=== PATIENT | female | born 1970 | race Caucasian/White ===

== ENCOUNTER → 2016-11-24 | Outpatient (CLI) | payer MEDICAID ==
[2016-11-24 08:37] LABS: CHCM 30.9; HDW 2.44; HGB 11.7 gm/dL (11.4-16.0); Hypochromasia Slight; MCH 26.7 pg (25.0-35.0); MCHC 31.6 g/dL (31.0-37.0); MCV 84.4 fL (80.0-100.0); Mean Platelet Volume 6.6; RBC 4.38 m/uL (3.80-5.40); RDW 14.3 % (11.5-15.5); WBC 5.4 k/uL (3.8-10.6)
[2016-11-24 09:03] LABS: ALT 23 U/L (9-52); AST 16 U/L (14-36); Alkaline Phosphatase 70 U/L (38-126); Anion Gap 11 mmol/L; Blood Urea Nitrogen 12 mg/dL (7-17); Calcium 9.1 mg/dL (8.4-10.2); Carbon Dioxide 26 mmol/L (22-30); Chloride 104 mmol/L (98-107); Cholesterol 160 mg/dL (<200); Glucose 96 mg/dL (74-99); HDL Cholesterol 51 mg/dL (40-60); Non-African American GFR(MDRD) >60 (>60 ml/min/1.73 sqM); Potassium 4.3 mmol/L (3.5-5.1); Sodium 141 mmol/L (137-145); Total Bilirubin 0.6 mg/dL (0.2-1.3); Total Protein 7.3 g/dL (6.3-8.2); Triglycerides 65 mg/dL (<150)
[2016-11-24 11:50] LABS: Hemoglobin A1C 5.8 % (4.2-6.1)
== END | disposition home or self-care (01) ==
LOC: LABWHC1 08:08
PROVIDERS: ATTEND Family Medicine
DX: Z00.00 Encounter for general adult medical examination without abnormal findings (principal)
CPT/HCPCS: 36415; 80053; 80061; 82306; 83036; 84443; 85027

== ENCOUNTER → 2019-03-29 | Outpatient (CLI) | payer MEDICAID ==
[2019-03-29 11:04] LABS: HCT 36.6 % (34.0-46.0); HGB 11.7 gm/dL (11.4-16.0); MCH 26.2 pg (25.0-35.0); Mean Platelet Volume 6.8; Platelet Count 306 k/uL (150-450); RBC 4.47 m/uL (3.80-5.40); RDW 15.7 % (11.5-15.5)
[2019-03-29 16:12] LABS: African American GFR (CKD) 87.6 (60.0-200.0); Albumin 4.3 g/dL (3.80-4.90); Albumin/Globulin Ratio 1.95 (1.60-3.17); Anion Gap 8.7 mmol/L (4.00-12.00); Calcium 8.9 mg/dL (8.7-10.3); Carbon Dioxide 25.3 mmol/L (21.6-31.8); Chol/HDL Ratio 3.3; Globulin 2.2 g/dL (1.6-3.3); LDL Cholesterol,Calculated 114.2 mg/dL (0.0-131.0); Potassium 4.4 mmol/L (3.5-5.5); Total Bilirubin 0.4 mg/dL (0.2-1.2); Total Protein 6.5 g/dL (6.2-8.2); VLDL Calculation 16.8 mg/dL (5.00-40.00)
[2019-03-29 16:25] LABS: T4, Free (Free Thyroxine) 0.8 ng/dL (0.80-1.80)
== END | disposition home or self-care (01) ==
LOC: LABWHC1 10:26
PROVIDERS: ATTEND Obstetrics & Gynecology
DX: R30.0 Dysuria (principal); R82.90 Unspecified abnormal findings in urine; Z13.220 Encounter for screening for lipoid disorders; Z13.1 Encounter for screening for diabetes mellitus
CPT/HCPCS: 36415; 80053; 80061; 84439; 84443; 85027

== ENCOUNTER → 2019-05-07 | Outpatient (CLI) | payer MEDICAID ==
--- NOTE | 2019-05-09 11:06 | MM ---
Reason for exam: screening (asymptomatic). Last mammogram was performed 4 years and 8 months ago. History: Reductions of both breasts, 1992. Physical Findings: A clinical breast exam by your physician is recommended on an annual basis and results should be correlated with mammographic findings. MG 3D Screening Mammo W/Cad Bilateral CC and MLO view(s) were taken. XCCL view(s) were taken of the left breast. Prior study comparison: September 04, 2014, bilateral MG screening mammo w CAD. July 18, 2013, bilateral digital screening mammo w/CAD. The breast tissue is heterogeneously dense. This may lower the sensitivity of mammography. Focal asymmetry left upper outer quadrant, stable. No significant changes when compared with prior studies. ASSESSMENT: Benign, BI-RAD 2 RECOMMENDATION: Routine screening mammogram of both breasts in 1 year.
== END | disposition home or self-care (01) ==
LOC: RADMAMWWP 15:38
PROVIDERS: ATTEND Obstetrics & Gynecology
DX: Z12.31 Encounter for screening mammogram for malignant neoplasm of breast (principal)
CPT/HCPCS: 77063; 77067

== ENCOUNTER → 2019-06-06 | Outpatient (CLI) | payer MEDICAID ==
--- NOTE | 2019-06-06 11:08 | US ---
EXAMINATION TYPE: US pelvis complete transvag DATE OF EXAM: 06/06/2019 COMPARISON: None CLINICAL HISTORY: D25.9 Known uterine leiomyoma. Patient states having hx of fibroids. Patient state s she has been having irregular menses. TECHNIQUE: Transvaginal (TV) and Transabdominal (TA) . Transabdominal sonographic images of the pel vis were acquired. Transvaginal sonographic images were medically necessary to better assess the fol lowing anatomy: Endometrium, ovaries Date of LMP: 05/27/2019, EXAM MEASUREMENTS: Uterus: 10.3 x 6.7 x 5.6 cm Endometrial Stripe: 0.7 cm Left Ovary: 3.8 x 2.1 x 2.0 cm 1. Uterus: Anteverted Enlarged. Heterogenous. Multiple lesions visualized, largest measured at m id posterior region - 2.0 x 1.6 x 1.5 cm 2. Endometrium: Possible lesion visualized within canal with vascular stalk - 1.3 x 1.4 x 1.2 cm 3. Right Ovary: Obscured by overlying bowel gas 4. Left Ovary: Cystic appearing lesion = 2.3 x 1.8 x 1.3 cm 5. Bilateral Adnexa: wnl 6. Posterior cul-de-sac: no free fluid Cervix- nabothian cysts IMPRESSION: 1. Abnormal endometrial thickening with possible intramural endometrial lesion measuring 1.4 cm (poss ible polyp with a vascular stalk). This could be further evaluated with sonohysterogram or direct vis ualization. 2. Likely physiologic left ovarian simple 2.3 cm cyst and small physiologic follicles. 3. Nonvisualization of the right ovary: Obscured by bowel gas.
== END ==
LOC: RADUSWWP 07:41
PROVIDERS: ATTEND Obstetrics & Gynecology
DX: D25.9 Leiomyoma of uterus, unspecified (principal)
CPT/HCPCS: 76830; 76856

== ENCOUNTER → 2019-06-24 | Outpatient (CLI) | payer MEDICAID ==
[2019-06-24 08:38] LABS: Basophils % (A) 0 %; Eosinophils # (A) 0.1 k/uL (0-0.7); Eosinophils % (A) 2 %; HGB 11.1 gm/dL (11.4-16.0); Hypochromasia Moderate; Lymphocytes # (A) 1.6 k/uL (1.0-4.8); Lymphocytes % (A) 26 %; MCH 25.4 pg (25.0-35.0); MCHC 31.7 g/dL (31.0-37.0); MCV 79.9 fL (80.0-100.0); Mean Platelet Volume 5.8; Monocytes # (A) 0.3 k/uL (0-1.0); Monocytes % (A) 4 %; Neutrophils # (A) 4.1 k/uL (1.3-7.7); Neutrophils % (A) 66 %; Platelet Count 313 k/uL (150-450); RBC 4.38 m/uL (3.80-5.40); RDW 13.5 % (11.5-15.5); WBC 6.1 k/uL (3.8-10.6)
== END | disposition home or self-care (01) ==
LOC: LABPAT 08:04
PROVIDERS: ATTEND Obstetrics & Gynecology
DX: Z01.812 Encounter for preprocedural laboratory examination (principal)
CPT/HCPCS: 36415; 85025

== ENCOUNTER 2019-07-01 07:41 | Day surgery (SDC) | payer MEDICAID ==
[2019-06-27 18:14] VITALS: BMI 37.4
--- NOTE | 2019-06-30 18:03 | P.HPOB ---
History of Present Illness H&P Date: 06/30/19 Chief Complaint: Menorrhagia with irregular cycle, family planning This is a 48 y.o. female, 2, para 2, who presents for dilatation and curettage with hysteroscopy and Novasure endometrial ablation for menorrhagia with regular cycle along with laparoscopic bilateral tubal ligation via fulgaration for family planning. Menses have been regular, but very heavy lasting up to 7 days. She did try BCPs, but has been spotting throughout the cycle. Pelvic US showed uterus measuring 10.3 x 6.7 x 5.6 cm, with endometrium of 7 mm and a lesion with a vascular stalk measuring 1.4 cm, possible polyp. She also had a simple 2.3 cm. left ovarian cyst. OB Hx: . Hx of 2 vaginal deliveries. 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 Currently uses condoms for BC. Social Hx: . Works in [employer] and [employer]. Review of Systems Constitutional: Reports night sweats, Reports weight gain Eyes: denies blurred vision, denies pain Ears, nose, mouth and throat: Denies headache, Denies sore throat Cardiovascular: Denies chest pain, Denies shortness of breath Gastrointestinal: Denies abdominal pain, Denies diarrhea, Denies nausea, Denies vomiting Genitourinary: Reports menorrhagia Menstruation: Reports period heavy Musculoskeletal: Denies myalgias Integumentary: Denies pruritus, Denies rash Neurological: Denies numbness, Denies weakness Psychiatric: Reports anxiety, Reports irritability Past Medical History Past Medical History: No Reported History Additional Past Medical History / Comment(s): HEAVY MENSES, UTERINE POLYP History of Any Multi-Drug Resistant Organisms: None Reported Past Surgical History: Cholecystectomy Additional Past Surgical History / Comment(s): Breast reduction Past Anesthesia/Blood Transfusion Reactions: No Reported Reaction Past Psychological History: No Psychological Hx Reported Smoking Status: Never smoker Past Alcohol Use History: None Reported Past Drug Use History: None Reported - Past Family History Mother Family Medical History: Diabetes Mellitus Father Family Medical History: Myocardial Infarction ([place]) Medications and Allergies Home Medications Medication Instructions Recorded Confirmed Type Acetaminophen [Tylenol Extra 1,000 mg PO Q8H PRN 06/27/19 06/27/19 History Strength] Desogestrel-Ethinyl Estradiol 1 each PO HS 06/27/19 06/27/19 History [Cyclessa 28 Day Tablet] Ibuprofen [Motrin Ib] 400 - 600 mg PO Q8H PRN 06/27/19 06/27/19 History Loratadine/Pseudoephedrine 1 tab PO Q12HR PRN 06/27/19 06/27/19 History [Alavert D-12 Allergy-Sinus Tab] Allergies Allergy/AdvReac Type Severity Reaction Status Date / Time Penicillins Allergy Rash/Hives Verified 06/27/19 17:57 Exam Osteopathic Statement: *. No significant issues noted on an osteopathic structural exam other than those noted in the History and Physical/Consult. HEENT: within normal limits Heart: regular rate and rhythm Lungs: clear to auscultation bilaterally Abdomen: soft, non-tender Pelvic: uterus anteverted, non-tender with no adnexal masses or tenderness noted Extremities: neg. Homans Assessment and Plan (1) Menorrhagia Status: Acute Code(s): N92.0 - EXCESSIVE AND FREQUENT MENSTRUATION WITH REGULAR CYCLE SNOMED Code(s): 119117492 (2) Family planning Status: Acute Code(s): Z30.09 - ENCOUNTER FOR OT GENERAL CNSL AND ADVICE ON CONTRACEPTION SNOMED Code(s): 911277698 Plan: Proceed with dilatation and curettage with hysteroscopy and Novasure endometrial ablation along with laparoscopic bilateral tubal ligation via fulgaration. I have discussed the risks, benefits, and alternative therapies for the above- mentioned procedure and for both sedation/anesthesia as well as necessary blood products administration, if indicated, as they pertain to this patient. The patient has indicated her understanding and acceptance of the risks and procedures discussed.
[~2019-07-01 07:41] MED LIST: DEXAMETHASONE SOD PHOSPHATE 10 MG/ML 1 ML VIAL IV ONE; HYDROmorphone 0.5 MG/0.5 ML SYRINGE IVP PRN; LACTATED RINGERS 1,000 ML IV SCH; LIDOCAINE 1% 20 ML VIAL (10MG/ML) FOR IV START INTRADERMA PRN; ONDANSETRON 4 MG/2 ML VIAL IVP ONE; Pre Op ABX Message 1 EACH MISC MISCELLANE ONE
[2019-07-01] MEDS ORDERED: PROPOFOL 10 MG/ML 20 ML VIAL IV ONE (08:56)
[2019-07-01] MEDS ORDERED: fentaNYL (PF) 50 MCG/ML 2 ML AMP ONE (08:56)
[2019-07-01] MEDS ORDERED: LIDOCAINE 1% INJ 10MG/ML (20 ML MDV) ONE (08:56)
[2019-07-01] MEDS ORDERED: NEOSTIGMINE 1 MG/ML 10 ML VIAL ONE (08:56)
[2019-07-01] MEDS ORDERED: GLYCOPYRROLATE 0.2 MG/ML 2 ML VIAL ONE (08:56)
[2019-07-01] MEDS ORDERED: MIDAZOLAM 2 MG/2 ML VIAL ONE (08:56)
[2019-07-01] MEDS ORDERED: ROCURONIUM BROMIDE 10 MG/ML 10 ML VIAL IV ONE (08:56)
[2019-07-01] MEDS ORDERED: KETOROLAC 30 MG/ML 1 ML VIAL ONE (08:56)
[2019-07-01] MEDS ORDERED: BUPIVACAINE (PF) 0.25% 30 ML VIAL SQ ONE ×2 (09:29→09:50)
[2019-07-01] MEDS ORDERED: LACTATED RINGERS 1,000 ML IV ONE (09:50)
--- NOTE | 2019-07-01 10:02 | P.OP ---
Date of Procedure: 07/01/19 Preoperative Diagnosis: Menorrhagia with irregular cycle Family planning Postoperative Diagnosis: Same Procedure(s) Performed: Dilation and curettage with hysteroscopy and NovaSure endometrial ablation Laparoscopic bilateral tubal ligation via fulguration Anesthesia: MARCIA Surgeon: Evie Garrison Estimated Blood Loss (ml): 10 Pathology: other (Endometrial curettings) Condition: stable Disposition: same day Indications for Procedure: This is a 48 y.o. female, 2, para 2, who presents for dilatation and curettage with hysteroscopy and Novasure endometrial ablation for menorrhagia with regular cycle along with laparoscopic bilateral tubal ligation via fulgaration for family planning. Menses have been regular, but very heavy lasting up to 7 days. She did try BCPs, but has been spotting throughout the cycle. Pelvic US showed uterus measuring 10.3 x 6.7 x 5.6 cm, with endometrium of 7 mm and a lesion with a vascular stalk measuring 1.4 cm, possible polyp. She also had a simple 2.3 cm. left ovarian cyst. Operative Findings: uterus is anteverted and sounded to 11 cm. Cervix is sounded to 3 cm. Upon hysteroscopy, a dyssynchronous endometrial pattern was noted with possible polypoid versus submucosal fibroid change. A moderate amount of endometrial curettings are obtained. Normal uterus and right tube and ovary are noted. There is a dilated left to with blood within the tube. The left ovary is much as it could be visualized was normal. There was a small area that could be endometriosis on the bowel going towards the rectum. Description of Procedure: The patient is taken to the operating room. She is placed in the dorsal lithotomy position after general anesthesia was given. She is prepped and draped in the normal sterile fashion. Bladder is drained with a catheter and then removed. Pelvic exam is performed under anesthesia. Uterus is found to be anteverted with no adnexal masses. She is placed in slight Trendelenburg position. A right angle retractor is used to visualize the cervix. The anterior lip of the cervix is grasped with a single-tooth tenaculum. Cervix is sounded to 3 cm. Uterus is sounded to 11 cm. Cervix is gently dilated with Arango dilators until a hysteroscope could be passed. Hysteroscopy is performed using normal saline. The above noted findings are noted. Next a polyp forceps is introduced. a minimal to moderate amount of tissue was obtained. Next medium-sized size sharp curette was placed. A moderate amount of endometrial curettings were obtained. Next NovaSure array was inserted into the endometrial cavity. Length was set at 6.5 cm and width was determined to be 3 cm. Next cavity assessment was completed and passed on the first try. Next NovaSure array was fired at 107 W for 52 seconds. Next the array was removed, inspected and then discarded. Next the hysteroscope was reinserted. Uniform charring was noted. Pictures were taken. Hysteroscope was removed. A kroner uterine layer was then inserted into the cervix and the balloon was inflated. Single-tooth tenaculum was removed from the anterior lip of the cervix. Minimal bleeding was noted. All other instruments removed from the vagina. attention is then turned to the abdomen. Gloves are changed. A small stab incision is made in the infraumbilical fold. A towel clip was placed above the umbilicus for retraction. A 5 mm disposable bladeless trocar was then inserted into the peritoneal cavity under direct visualization. Once inside, pneumoperitoneum was achieved with CO2 gas. The insert was removed and the camera was placed. Intraperitoneal placement was confirmed. No bleeding was noted. Next the patient was placed in Trendelenburg position. A small stab incision was made suprapubically and a 5 mm disposable bladeless trocar was inserted into the peritoneal cavity under direct visualization. Once inside pelvic contents were inspected. Next a bipolar Kleppinger instrument was placed through the inferior trocar and the midportion of each tube was brought away from other structures and completely fulgurated on approximate 2-3 cm segment of each tube. Excellent hemostasis was noted. A picture was taken. Pneumoperitoneum was released after the inferior trocar was removed under direct visualization. The upper trocar was then removed. The skin incisions were then closed with 4-0 Vicryl suture in a subcuticular fashion. the incision sites are then injected with quarter percent Marcaine. Approximately 7 mL were used. Next the kroner uterine manipulator was removed. Minimal bleeding was noted. All sponge and needle counts are correct. The patient is then taken to recovery room in stable condition.
[2019-07-01 10:13] VITALS: TEMP 97
[2019-07-01] MEDS ORDERED: HYDROcodone/APAP 5-325MG 1 EACH TAB PO ONE (11:48)
[2019-07-01 13:32] VITALS: BP 133/78; PULSE 65; RESP 16
== END 2019-07-01 12:35 | disposition home or self-care (01) ==
LOC: OR 07:41
PROVIDERS: ATTEND Obstetrics & Gynecology
DX: N92.1 Excessive and frequent menstruation with irregular cycle (principal); Z30.2 Encounter for sterilization; N83.292 Other ovarian cyst, left side; E66.01 Morbid (severe) obesity due to excess calories; Z88.0 Allergy status to penicillin; Z90.49 Acquired absence of other specified parts of digestive tract; Z68.37 Body mass index [BMI] 37.0-37.9, adult; Z79.3 Long term (current) use of hormonal contraceptives; Z83.3 Family history of diabetes mellitus; Z82.49 Family history of ischemic heart disease and other diseases of the circulatory system
CPT/HCPCS: 88305; 84703; 58670; 58563; J2250; J1100; J2710; J2405; J2001; J3010; J1885; J2704

== ENCOUNTER → 2019-07-11 | Outpatient (CLI) | payer MEDICAID ==
--- NOTE | 2019-07-12 03:49 | MR ---
EXAMINATION TYPE: MR ankle LT wo con DATE OF EXAM: 07/11/2019 COMPARISON: None HISTORY: Left ankle pain. FINDINGS: There is Achilles calcaneal spur. The medial and lateral flexor tendons appear intact. The plantar fa scia is intact. There are small Achilles calcaneal spur. Ankle mortise is anatomic. Collateral ligame nts appear intact. I see no bony destructive process. There is no evidence of a fracture. There are s mall synovial cysts present at the posterior aspect of the ankle joint as well as inferior aspect of the talonavicular joint. There is some subcutaneous edema around the foot and ankle and also the plan tar aspect of the calcaneus. IMPRESSION: Mild calcaneal spurring. No evidence of ligament or tendon tear. Subcutaneous edema noted around the lower leg and foot. Small synovial cyst at the posterior aspect of the ankle joint and the plantar aspect of the talonavi cular joint consistent with degenerative phenomenon and synovitis.
== END | disposition home or self-care (01) ==
LOC: RADMRIMAIN 12:03
PROVIDERS: ATTEND Orthopaedic Surgery
DX: M77.32 Calcaneal spur, left foot (principal); R60.9 Edema, unspecified; M72.2 Plantar fascial fibromatosis

== ENCOUNTER 2020-05-16 14:29 | Emergency (ER) | payer MEDICAID ==
[2020-05-16 14:42] VITALS: BP 166/95; PULSE 89; RESP 18; TEMP 98.9
[2020-05-16] MEDS ORDERED: methylPREDNISolone SOD SUCCI 125 MG/2 ML VIAL IM STA (15:08)
[2020-05-16] MEDS ORDERED: KETOROLAC 15 MG/ML 1 ML VIAL IM STA (15:08)
--- NOTE | 2020-05-16 15:28 | ED ---
General Adult HPI - General Chief complaint: Extremity Problem,Nontraumatic Stated complaint: L Side Pain Time Seen by Provider: 05/16/20 14:45 Source: patient, RN notes reviewed Mode of arrival: ambulatory Limitations: no limitations - History of Present Illness Initial comments: 49-year-old female presents to the emergency room for a chief complaint of left arm pain. Patient reports that she has had pain in her left arm for about one month now. States it comes and goes. It starts in her neck and radiates down to her elbow. States certain movements of her neck worsening pain. States her hand has been tingling on and off. Patient denies weakness of the left upper extremity. Patient denies any known injuries. Patient denies any decreased range of motion of the shoulder and elbow joint.Patient has no other complaints at this time including shortness of breath, chest pain, abdominal pain, nausea or vomiting, headache, or visual changes. - Related Data Home Medications Medication Instructions Recorded Confirmed Acetaminophen [Tylenol Extra 1,000 mg PO Q8H PRN 06/27/19 06/27/19 Strength] Desogestrel-Ethinyl Estradiol 1 each PO HS 06/27/19 06/27/19 [Cyclessa 28 Day Tablet] Ibuprofen [Motrin Ib] 400 - 600 mg PO Q8H PRN 06/27/19 06/27/19 Loratadine/Pseudoephedrine 1 tab PO Q12HR PRN 06/27/19 06/27/19 [Alavert D-12 Allergy-Sinus Tab] Previous Rx's Medication Instructions Recorded HYDROcodone/APAP 5-325MG [[place] 1 tab PO Q4HR PRN 3 Days #18 tab 07/01/19 5-325] predniSONE 50 mg PO DAILY #5 tablet 05/16/20 Allergies Allergy/AdvReac Type Severity Reaction Status Date / Time Penicillins Allergy Rash/Hives Verified 05/16/20 14:42 Review of Systems ROS Statement: Those systems with pertinent positive or pertinent negative responses have been documented in the HPI. ROS Other: All systems not noted in ROS Statement are negative. Past Medical History Past Medical History: No Reported History History of Any Multi-Drug Resistant Organisms: None Reported Past Surgical History: Cholecystectomy Additional Past Surgical History / Comment(s): fibroids Past Psychological History: No Psychological Hx Reported Smoking Status: Never smoker Past Alcohol Use History: None Reported Past Drug Use History: None Reported General Exam Limitations: no limitations General appearance: alert, in no apparent distress Head exam: Present: atraumatic, normocephalic, normal inspection Eye exam: Present: normal appearance, PERRL, EOMI. Absent: scleral icterus, conjunctival injection, periorbital swelling ENT exam: Present: normal exam, mucous membranes moist Neck exam: Present: normal inspection, full ROM. Absent: tenderness, meningismus, lymphadenopathy Respiratory exam: Present: normal lung sounds bilaterally. Absent: respiratory distress, wheezes, rales, rhonchi, stridor Cardiovascular Exam: Present: regular rate, normal rhythm, normal heart sounds. Absent: systolic murmur, diastolic murmur, rubs, gallop, clicks Extremities exam: Present: full ROM (Full range motion of the left arm including the left wrist elbow and shoulder.), tenderness (Minimal tenderness to the lateral left humeral area.), normal capillary refill (Capillary refill less than 2 seconds, radial pulse 2+ and left upper extremity.), other (Sensation intact left upper extremity. Strength 5 out of 5.). Absent: pedal edema, joint swelling (There is no edema or erythema/ecchymosis noted of the left upper extremity.), calf tenderness Course Vital Signs 05/16/20 14:36 Temperature 98.9 F Pulse Rate 89 Respiratory 18 Rate Blood Pressure 166/95 O2 Sat by Pulse 99 Oximetry Medical Decision Making - Medical Decision Making Vitals are stable. Neurovascular status intact in the left upper extremity. Patient has symptoms consistent with cervical radiculopathy given neck pain radiating to the left arm with paresthesias. Movement worsens the pain. I did x-ray the cervical spine which shows spondylitic changes without fracture seen. Patient did have a steroid and Toradol injection with minimal improvement in pain. Therefore she was given injection of morphine. She will be sent home with Tylenol 3 and steroids. She will follow up with Dr. Ogden, referral given. If she has worsening symptoms she will return here to the emergency room. Disposition Clinical Impression: Cervical radiculopathy Disposition: HOME SELF-CARE Condition: Good Instructions (If sedation given, give patient instructions): Cervical Radiculopathy (ED) Additional Instructions: Please take steroid as directed. Take Tylenol 3 as needed for pain but do not drive while taking this. Call tomorrow to follow-up with orthopedics. If you have any worsening symptoms return to the emergency room. Prescriptions: predniSONE 50 mg PO DAILY #5 tablet Is patient prescribed a controlled substance at d/c from ED?: No Referrals: Hakan Dumont DO [Primary Care Provider] - 1-2 days Roslyn Ogden DO [Doctor of Osteopathic Medicine] - 1-2 days Time of Disposition: 16:03
--- NOTE | 2020-05-16 15:50 | XR ---
EXAMINATION TYPE: XR cervical spine comp DATE OF EXAM: 05/16/2020 COMPARISON: NONE HISTORY: Arm numbness TECHNIQUE: 5 views FINDINGS: Cervical vertebra have normal alignment. There is narrowing of disc spaces at C4-5 and C5-6 with spurring. Posterior elements are intact. There are no cervical ribs. There is uncovertebral spu rring on the right side at C4-5 with slight neural foraminal impingement. IMPRESSION: Spondylotic changes. No fracture seen.
[2020-05-16] MEDS ORDERED: MORPHINE SULFATE 4 MG/ML SYRINGE IM STA (16:01)
[2020-05-16] MEDS ORDERED: ACET/COD 300 MG/30 MG STARTER PACK 6 TAB BTL PO STA (16:01)
== END 2020-05-16 16:37 | disposition home or self-care (01) ==
LOC: EC 14:29
DX: M54.12 Radiculopathy, cervical region (principal); Z79.3 Long term (current) use of hormonal contraceptives; Z88.0 Allergy status to penicillin
CPT/HCPCS: 72050; 99283; 96372 ×3; J2270; J2930; J1885

== ENCOUNTER → 2020-05-24 | Outpatient (CLI) | payer MEDICAID ==
--- NOTE | 2020-05-25 07:58 | XR ---
Cervical spine with flexion and extension HISTORY: M 54.2, M 54.12 7 views of the cervical spine correlated to prior exam 05/16/2020 There is multilevel spondylosis as on prior exam, alignment is stable. Minimal retrolisthesis grade 1 C4-5. Loss of disc height is present at intervertebral levels especially C4-5, C5-6. No significant change in alignment on flexion and extension views. Facet arthropathy changes also present. C3-4 and C4-5 shows foraminal encroachment bilaterally, oblique views of the left foramina are not optimal. C7 -T1 not well seen on the lateral view. IMPRESSION: Degenerative disc disease and facet arthropathy.
== END | disposition home or self-care (01) ==
LOC: RAD 15:44
PROVIDERS: ATTEND Orthopaedic Surgery Orthopaedic Surgery of the Spine
DX: M50.10 Cervical disc disorder with radiculopathy, unspecified cervical region (principal); M47.22 Other spondylosis with radiculopathy, cervical region
CPT/HCPCS: 72052

== ENCOUNTER → 2020-05-25 | Outpatient (CLI) | payer MEDICAID ==
--- NOTE | 2020-05-26 07:49 | MR ---
MRI CERVICAL SPINE: CLINICAL HISTORY: Cervicalgia, cervical region radiculopathy, spondylolisthesis, cervical disc degene ration C4-C5, cervical disc degeneration C5-C6, vertebral osteophyte, and weakness all per order. Nec k pain into arm for one month per patient. TECHNIQUE: Multiplanar, multisequence imaging of the cervical spine is performed without IV contrast. COMPARISON: Cervical spine x-rays May 24, 2020. FINDINGS: Sagittal images of the cervical spine show the craniocervical junction to appear within nor mal limits. The cervical and upper thoracic spinal cord is normal in caliber and signal. There is gr frantz 1 retrolisthesis of C4 on C5 and C5 on C6. The vertebral body heights are normal. Moderate disc space narrowing C4-C5 and mild disc space narrowing C5-C6 level with mild anterior spurring at these levels. Some heterogeneous T2 endplate changes are present greatest inferior C4 level. Note is made of roughly 3.9 x 2.5 cm arachnoid cyst in the superior aspect of the posterior fossa with local mass effect on the cerebellum sagittal image 8. Axial images show C2-C3 level to appear within normal limits. Axial images at C3-C4 level show right paracentral/foraminal disc protrusion mildly effaces the anter olateral thecal sac and causing asymmetric mild right-sided neural foraminal narrowing. Axial images C4-C5 level show focal right paracentral/foraminal disc protrusion facing anterolaterall y thecal sac and causing moderate right-sided neural foraminal narrowing. Spondylolisthesis is presen t. Axial images at C5-C6 level shows a focal left paracentral disc protrusion along with right foraminal disc protrusion component, there is effacement of anterior thecal sac and there is advanced right-si ded neural foraminal narrowing. Axial images at C6-C7 level shows small lobulated posterior disc protrusion mildly effacing left thec al sac, patent bilateral neural foramina. Axial images at C7-T1 level are within normal limits. IMPRESSION: Multilevel degenerative changes greatest at C4-C5 and C5-C6 level. There is additional sp ondylolisthesis at these levels as detailed above. Note is made of nearly 4.0 cm suspected arachnoid cyst with local mass effect on superior cerebellum in the superior aspect of the posterior fossa, cor relate clinically.
== END | disposition home or self-care (01) ==
LOC: RADMRIMAIN 12:59
PROVIDERS: ATTEND Orthopaedic Surgery Orthopaedic Surgery of the Spine
DX: M43.12 Spondylolisthesis, cervical region (principal); M47.22 Other spondylosis with radiculopathy, cervical region
CPT/HCPCS: 72141

== ENCOUNTER → 2020-06-16 | Outpatient (CLI) | payer MEDICAID ==
[2020-06-16 12:33] VITALS: BP 143/91; PULSE 87; RESP 16; TEMP 98.3
--- NOTE | 2020-06-16 12:46 | P.PAINCN ---
History of Present Illness - Reason for Consult Consult date: 06/16/20 - History of Present Illness This is the initial consultation visit for this 49 years old female with 6 weeks still severe neck pain with radiation to the left upper extremity associated with some numbness and tingling sensation radiated from the neck to the left upper extremity lift thump, and to the left lateral aspect of the palm of the left hand, she denies any initiating event and the pain is constant and increases with any activity, she feels some minimal weakness in her left arm, she continues to work, she denies any fever or night sweats she denies any change in the bowel movement or urination, no fever or night sweats, she tried for a course of prednisone therapy and NSAID, and she had minimal benefit from it Past Medical History Past Medical History: No Reported History History of Any Multi-Drug Resistant Organisms: None Reported Past Surgical History: Cholecystectomy Additional Past Surgical History / Comment(s): fibroids Past Psychological History: No Psychological Hx Reported Smoking Status: Never smoker Past Alcohol Use History: None Reported Past Drug Use History: None Reported Medications and Allergies Home Medications Medication Instructions Recorded Confirmed Type Acetaminophen [Tylenol Extra 1,000 mg PO Q8H PRN 06/27/19 06/27/19 History Strength] Desogestrel-Ethinyl Estradiol 1 each PO HS 06/27/19 06/27/19 History [Cyclessa 28 Day Tablet] Ibuprofen [Motrin Ib] 400 - 600 mg PO Q8H PRN 06/27/19 06/27/19 History Loratadine/Pseudoephedrine 1 tab PO Q12HR PRN 06/27/19 06/27/19 History [Alavert D-12 Allergy-Sinus Tab] HYDROcodone/APAP 5-325MG [[place] 1 tab PO Q4HR PRN 3 Days #18 tab 07/01/19 Rx 5-325] predniSONE 50 mg PO DAILY #5 tablet 05/16/20 Rx Allergies Allergy/AdvReac Type Severity Reaction Status Date / Time Penicillins Allergy Rash/Hives Verified 05/16/20 14:42 Physical Exam Vitals: Vital Signs Temp Pulse Resp BP Pulse Ox 06/16/20 12:10 98.3 F 87 16 143/91 99 Intake and Output 06/15/20 06/16/20 06/16/20 22:59 06:59 14:59 Other: Weight 86.183 kg Physical Examinations : -Constitutiona : Cooperative , not in acute distress . -HEENT : nech : supple , no Lymphadenopathy , normal thyroid size . : eyes : no ptosis , no icterus, no photophobia . - neurologic : Cranial nerve II to XII intact , no focal neurological deffecit . -psychatric : alert , oriented X 3 , appropriate affect , intact judgment and insight . -Lymphatic : no Lymphadenopathy . - musculoskeltal : Cervical Spine motor stregnth in the deltoid and biceps, 5/5 right side , 4,5/5 Left side motor stregnth biceps and the wrist extensors 5/5 right side ,4,5/5 left side . motor stregnth in the triceps muscle . 5/5 Right side ,4,5/5 Left side deep tendon reflexes normal at the biceps , normal at Brachioradialis , normal at triceps. cervical facet loading test= negative Bilaterally Spurling test= positive left side. Neck distraction test= positive left side. Miguel sign= positive left-sided. Lumber spine moter stegnth lower extremities ,thigh and legs 5/5 Right side , 5/5 Left side Results Comments: MRI of the cervical spine done 05/25/2020 at C4 5 right foraminal disc protrusion and right foraminal narrowing C5 6 left disc protrusion and foraminal narrowing at C6 7 l disc protrusion Assessment and Plan Plan: Assessment and plan=1-cervical radiculopathy. 2-cervical degenerative disc disease. Patient could benefit from cervical epidural steroid injection at C7-T1 (left paramedian approach ) Seizure risk and benefits and alternatives discussed with the patient she agreed with the preceding Time with Patient: Greater than 30 PQRS Measure Charge Sheet Measure #226: Tobacco Use: Screen & Cessation Intervention: Pt not a tobacco user Measure #111: Pneumonia Vaccination: Pneumococcal vaccine NOT administered or previously given Measure #47: Advance Care Plan: Advance care planning discussed & documented, pt chose/unable to give Measure #412: Opioid Treatment Agreement: No documentation of signed opioid treatment agreement Measure #408: Opioid Therapy Follow-up Evaluation: Patient had NO f/u eval minimum every 3 months during opioid therapy Measure #317: Preventitive Care & Scrn High Bld Press & F/U: Pre-hypertensive or hypertensive BP documented, pt will f/u with PCP Measure #128: Body Mass Index (BMI) Screening & Follow-up: BMI documented ABOVE normal parameters - f/u documented Measure #131: Pain Assessment & Follow-up: Pain positive & plan documented, Follow-up scheduled Measure #431: Unhealthy Alcohol Use Preventative Care & Scrn: Patient not identified as an unhealthy alcohol user PQRS Narrative: Blood Pressure 143/91 Pain Intensity [Neck] 6 Hx Alcohol Use (MH) No Home Medications: Ambulatory Orders Acetaminophen [Tylenol Extra Strength] 1,000 mg PO Q8H PRN 06/27/19 Desogestrel-Ethinyl Estradiol [Cyclessa 28 Day Tablet] 1 each PO HS 06/27/19 Ibuprofen [Motrin Ib] 400 - 600 mg PO Q8H PRN 06/27/19 Loratadine/Pseudoephedrine [Alavert D-12 Allergy-Sinus Tab] 1 tab PO Q12HR PRN 06/27/19 HYDROcodone/APAP 5-325MG [[place] 5-325] 1 tab PO Q4HR PRN 3 Days #18 tab 07/01/19 predniSONE 50 mg PO DAILY #5 tablet 05/16/20
== END | disposition home or self-care (01) ==
LOC: PNWHC3 12:03
PROVIDERS: ATTEND Specialist
DX: M50.30 Other cervical disc degeneration, unspecified cervical region (principal); M54.12 Radiculopathy, cervical region; Z79.3 Long term (current) use of hormonal contraceptives; Z79.891 Long term (current) use of opiate analgesic
CPT/HCPCS: 99211

== ENCOUNTER → 2020-07-06 | Day surgery (SDC) | payer MEDICAID ==
[2020-07-05 09:08] VITALS: BMI 31.6
[~2020-07-06] MED LIST changes: -DEXAMETHASONE SOD PHOSPHATE 10 MG/ML 1 ML VIAL IV ONE; +DEXAMETHASONE SOD PHOSPHATE 10 MG/ML 1 ML VIAL ONE; -HYDROmorphone 0.5 MG/0.5 ML SYRINGE IVP PRN; +IOPAMIDOL M200 10 ML VIAL ONE; +IV FLUID CONTINUATION 700 ML IV ONE; +LIDOCAINE 1% (10MG/ML) FOR IV START INTRADERMA ONE; -LIDOCAINE 1% 20 ML VIAL (10MG/ML) FOR IV START INTRADERMA PRN; +MIDAZOLAM 2 MG/2 ML VIAL ONE; -ONDANSETRON 4 MG/2 ML VIAL IVP ONE; -Pre Op ABX Message 1 EACH MISC MISCELLANE ONE; +fentaNYL (PF) 50 MCG/ML 2 ML AMP ONE
[2020-07-06 06:58] VITALS: RESP 16; TEMP 98.9
--- NOTE | 2020-07-06 07:18 | P.PCN ---
Date of Procedure: 07/06/20 Surgeon: Arthur Joseph Pathology: none sent Condition: stable Disposition: PACU Description of Procedure: PROCEDURE 1. Cervical epidural steroid injection under fluoroscopic guidance, C7-T1 left paramedian approach. 2. Cervical epidurogram. : PREOPERATIVE DIAGNOSIS: Cervical radiculopathy, cervical spondylosis without myelopathy POSTOPERATIVE DIAGNOSIS: : Same as above ANESTHESIA: Local anesthesia with 1% lidocaine and IV moderate conscious sedation with Versed and Fentanyl . EBL 0 PROCEDURE INDICATION: The patient with neck pain and radiculopathy unresponsive to conservative treatment consents for procedure. PROCEDURE DESCRIPTION / TECHNIQUE: The patient was seen and identified in the preoperative area. Risks, benefits, complications, including but not limited to infections ,bleeding , allergic reactions to the medications ,and not complete pain relief, and alternatives were discussed with the patient, the patient agreed to proceed with the procedure and signed the consent. Patient was taken to the OR and time out was completed. The patient was placed in the prone position on the procedure table. A pillow was placed under the patients chest to increase the flexion of the cervical spine . The cervical area was prepped and draped in the usual sterile fashion. Vital signs were closely monitored during the procedure. Conscious sedation was used during the procedure to decrease patients anxiety. Using anterior-posterior fluoroscopy, the C7-T1 interlaminar space was identified and the skin over this site was marked and then infiltrated with 1% lidocaine subcutaneously. Subsequently, a 20-gauge 3-1/2-inch Tuohy epidural needle was inserted and advanced toward the epidural space by means of loss of resistance to air technique and guided by AP and lateral fluoroscopy. The needle tip contacted the lamina of T1 vertebra first, then it was walked off bone and into the epidural space using the loss of to air and fluoroscopic guidance to identify the epidural space. The correct needle position in the epidural space was verified with the injection of 1 mL of the water soluble contrast dye Isovue and observing an excellent epidurogram with the epidural spread of the dye, after negative aspiration for blood and CSF and in the absence of paresthesias. Again after negative aspiration, 20 mg of Decadron was injected and a washout of epidurogram was seen. Needle was withdrawn intact, skin was cleansed, and bandages were applied. A copy of the needle placement picture was saved to the fluoroscopy machine.
[2020-07-06 07:35] VITALS: BP 138/82; PULSE 90
--- NOTE | 2020-07-06 08:43 | FL ---
EXAMINATION TYPE: FL guided pain mgmt statistic DATE OF EXAM: 07/06/2020 HISTORY: Fluoroscopy time 5 seconds of fluoroscopy provided. IMPRESSION: 1. Fluoroscopy time.
== END ==
LOC: ORPAIN 06:33
PROVIDERS: ATTEND Anesthesiology
DX: M47.22 Other spondylosis with radiculopathy, cervical region (principal); Z88.0 Allergy status to penicillin
CPT/HCPCS: 62321; 81025; J2250; J1100; J3010; Q9966; 99152

== ENCOUNTER → 2020-08-04 | Outpatient (CLI) | payer MEDICAID ==
[2020-08-04 11:25] VITALS: BP 157/66; PULSE 86; RESP 18; TEMP 99.3
--- NOTE | 2020-08-04 11:59 | P.PN ---
Subjective Progress Note Date: 08/04/20 This is a follow-up visit for this 50 years old female with a chronic history of severe neck pain with radiation to the left upper extremity associated with numbness and tingling sensation, she states no specific degenerative disc disease cervical radiculopathy, cervical foraminal stenosis, previously withheld on cervical epidural steroid injection 1, she reported her pain in the left upper extremity improved significantly, she is complaining of neck pain with radiation to the right upper extremity, with the neck pain and the upper extremity pain increases with any activity, she denies any motor or sensory deficit she denies any fever or night sweats Objective - Vital Signs Vital signs: Vital Signs Temp 99.3 F 08/04/20 11:20 Pulse 86 08/04/20 11:20 Resp 18 08/04/20 11:20 BP 157/66 08/04/20 11:20 Pulse Ox 97 08/04/20 11:20 Intake & Output 08/03/20 08/04/20 08/04/20 18:59 06:59 18:59 Weight 88.451 kg - Exam -Constitutiona : Cooperative , not in acute distress . -HEENT : nech : supple , no Lymphadenopathy , normal thyroid size . : eyes : no ptosis , no icterus, no photophobia . - neurologic : Cranial nerve II to XII intact , no focal neurological deffecit . -psychatric : alert , oriented X 3 , appropriate affect , intact judgment and insight . -Lymphatic : no Lymphadenopathy . - musculoskeltal : Cervical Spine motor stregnth in the deltoid and biceps, 5/5 right side , 5/5 Left side motor stregnth biceps and the wrist extensors 5/5 right side ,4,5/5 left side . motor stregnth in the triceps muscle . 5/5 Right side ,5/5 Left side deep tendon reflexes normal at the biceps , normal at Brachioradialis , normal at triceps. cervical facet loading test= negative Bilaterally Spurling test= positive right side. Neck distraction test= positive right side. Miguel sign= positive right sided. Lumber spine moter stegnth lower extremities ,thigh and legs 5/5 Right side , 5/5 Left side Assessment and Plan Plan: MRI of the cervical spine done 05/25/2020 at [facility] C4 5 right foraminal disc protrusion and right foraminal narrowing C5 6 left disc protrusion and foraminal narrowing at C6 7 l disc protrusion Assessment and Plan Plan: Assessment and plan= 1-cervical radiculopathy. 2-cervical degenerative disc disease. 3-cervical foraminal stenosis Patient could benefit from cervical epidural steroid injection at C7-T1 (right paramedian approach ) Procedure risk and benefits and alternatives discussed with the patient she agreed with the preceding PQRS Measure Charge Sheet Measure #226: Tobacco Use: Screen & Cessation Intervention: Pt not a tobacco user Measure #111: Pneumonia Vaccination: Pneumococcal vaccine NOT administered or previously given Measure #47: Advance Care Plan: Advance care planning discussed & documented, pt chose/unable to give Measure #412: Opioid Treatment Agreement: No documentation of signed opioid treatment agreement Measure #408: Opioid Therapy Follow-up Evaluation: Patient had NO f/u eval minimum every 3 months during opioid therapy Measure #317: Preventitive Care & Scrn High Bld Press & F/U: Pre-hypertensive or hypertensive BP documented, pt will f/u with PCP Measure #128: Body Mass Index (BMI) Screening & Follow-up: BMI documented ABOVE normal parameters - f/u documented Measure #131: Pain Assessment & Follow-up: Pain positive & plan documented, Follow-up scheduled Measure #431: Unhealthy Alcohol Use Preventative Care & Scrn: Patient not identified as an unhealthy alcohol user PQRS Narrative: Time with Patient: Less than 30
== END | disposition home or self-care (01) ==
LOC: PNWHC3 11:14
PROVIDERS: ATTEND Specialist
DX: M48.02 Spinal stenosis, cervical region (principal); M50.10 Cervical disc disorder with radiculopathy, unspecified cervical region
CPT/HCPCS: 99211

== ENCOUNTER 2020-08-19 06:06 | Day surgery (SDC) | payer MEDICAID ==
[2020-08-18 12:26] VITALS: BMI 32.4
[~2020-08-19 06:06] MED LIST changes: -DEXAMETHASONE SOD PHOSPHATE 10 MG/ML 1 ML VIAL ONE; -IOPAMIDOL M200 10 ML VIAL ONE; -IV FLUID CONTINUATION 700 ML IV ONE; -LIDOCAINE 1% (10MG/ML) FOR IV START INTRADERMA ONE; -MIDAZOLAM 2 MG/2 ML VIAL ONE; -fentaNYL (PF) 50 MCG/ML 2 ML AMP ONE
[2020-08-19 06:43] VITALS: RESP 16; TEMP 97.3
[2020-08-19] MEDS ORDERED: fentaNYL (PF) 50 MCG/ML 2 ML AMP ONE (07:01)
[2020-08-19] MEDS ORDERED: IOPAMIDOL M200 10 ML VIAL ONE (07:01)
[2020-08-19] MEDS ORDERED: MIDAZOLAM 2 MG/2 ML VIAL ONE (07:01)
[2020-08-19] MEDS ORDERED: DEXAMETHASONE SOD PHOSPHATE 10 MG/ML 1 ML VIAL ONE (07:01)
--- NOTE | 2020-08-19 07:12 | P.PCN ---
Date of Procedure: 08/19/20 Surgeon: Arthur Joseph Pathology: none sent Condition: stable Disposition: PACU Description of Procedure: PROCEDURE 1. Cervical epidural steroid injection under fluoroscopic guidance, C7-T1 Rt paramedian approach. 2. Cervical epidurogram. : PREOPERATIVE DIAGNOSIS: Cervical radiculopathy, cervical spondylosis without myelopathy POSTOPERATIVE DIAGNOSIS: : Same as above ANESTHESIA: Local anesthesia with 1% lidocaine and IV moderate conscious sedation with Versed and Fentanyl . EBL 0 PROCEDURE INDICATION: The patient with neck pain and radiculopathy unresponsive to conservative treatment consents for procedure. PROCEDURE DESCRIPTION / TECHNIQUE: The patient was seen and identified in the preoperative area. Risks, benefits, complications, including but not limited to infections ,bleeding , allergic reactions to the medications ,and not complete pain relief, and alternatives were discussed with the patient, the patient agreed to proceed with the procedure and signed the consent. Patient was taken to the OR and time out was completed. The patient was placed in the prone position on the procedure table. A pillow was placed under the patients chest to increase the flexion of the cervical spine . The cervical area was prepped and draped in the usual sterile fashion. Vital signs were closely monitored during the procedure. Conscious sedation was used during the procedure to decrease patients anxiety. Using anterior-posterior fluoroscopy, the C7-T1 interlaminar space was identified and the skin over this site was marked and then infiltrated with 1% lidocaine subcutaneously. Subsequently, a 20-gauge 3-1/2-inch Tuohy epidural needle was inserted and advanced toward the epidural space by means of loss of resistance to air technique and guided by AP and lateral fluoroscopy. The needle tip contacted the lamina of T1 vertebra first, then it was walked off bone and into the epidural space using the loss of to air and fluoroscopic guidance to identify the epidural space. The correct needle position in the epidural space was verified with the injection of 1 mL of the water soluble contrast dye Isovue and observing an excellent epidurogram with the epidural spread of the dye, after negative aspiration for blood and CSF and in the absence of paresthesias. Again after negative aspiration, a 3 ml mixture containing 10 mg of Decadron and 2 ml of preservative free Normal Saline solution was injected and a washout of epidurogram was seen. Needle was withdrawn intact, skin was cleansed, and bandages were applied. A copy of the needle placement picture was saved to the fluoroscopy machine.
[2020-08-19] MEDS ORDERED: IV FLUID CONTINUATION 1,000 ML IV ONE (07:15)
[2020-08-19 07:31] VITALS: BP 125/85; PULSE 82
--- NOTE | 2020-08-19 10:17 | FL ---
Fluoroscopy HISTORY: Pain 3 seconds fluoroscopy time supplied to the referring clinician. 1 intraoperative C-arm images docume nt the procedure. See dictated report from anesthesia.
== END 2020-08-19 07:46 | disposition home or self-care (01) ==
LOC: ORPAIN 06:06
PROVIDERS: ATTEND Anesthesiology
DX: M47.22 Other spondylosis with radiculopathy, cervical region (principal); E66.9 Obesity, unspecified; Z88.0 Allergy status to penicillin; Z68.36 Body mass index [BMI] 36.0-36.9, adult
CPT/HCPCS: 81025; 62321; J2250; J1100; J3010; Q9966

== ENCOUNTER → 2020-09-15 | Outpatient (CLI) | payer MEDICAID ==
[2020-09-15 11:46] VITALS: BP 155/98; PULSE 103; RESP 16; TEMP 97.9
--- NOTE | 2020-09-15 20:33 | P.PN ---
Subjective Progress Note Date: 09/15/20 This is a follow-up visit for this 50 years old female with a chronic history of severe neck pain with radiation to the left upper extremity associated with numbness and tingling sensation, she is diagnosed with cervical degenerative disc disease cervical radiculopathy, cervical foraminal stenosis, status post cervical epidural steroid injection 2,, the patient improved significantly after the injections, and currently she has no pain, she is able to do all the activity without any problem She denies any motor or sensory deficit. Current examination -Constitutiona : Cooperative , not in acute distress . -HEENT : nech : supple , no Lymphadenopathy , normal thyroid size . : eyes : no ptosis , no icterus, no photophobia . - neurologic : Cranial nerve II to XII intact , no focal neurological deffecit . -psychatric : alert , oriented X 3 , appropriate affect , intact judgment and insight . Assessment and Plan Plan: MRI of the cervical spine done 05/25/2020 at [facility] C4 5 right foraminal disc protrusion and right foraminal narrowing C5 6 left disc protrusion and foraminal narrowing at C6 7 l disc protrusion Assessment and Plan Plan: Assessment and plan= 1-cervical radiculopathy. 2-cervical degenerative disc disease. 3-cervical foraminal stenosis Pain Improved significantly after cervical epidural steroid injections 2 Patient will follow up in the pain clinic when necessary PQRS Measure Charge Sheet Measure #226: Tobacco Use: Screen & Cessation Intervention: Pt not a tobacco user Measure #111: Pneumonia Vaccination: Pneumococcal vaccine NOT administered or previously given Measure #47: Advance Care Plan: Advance care planning discussed & documented, pt chose/unable to give Measure #412: Opioid Treatment Agreement: No documentation of signed opioid treatment agreement Measure #408: Opioid Therapy Follow-up Evaluation: Patient had NO f/u eval minimum every 3 months during opioid therapy Measure #317: Preventitive Care & Scrn High Bld Press & F/U: Pre-hypertensive or hypertensive BP documented, pt will f/u with PCP Measure #128: Body Mass Index (BMI) Screening & Follow-up: BMI documented ABOVE normal parameters - f/u documented Measure #131: Pain Assessment & Follow-up: Pain positive & plan documented, Follow-up scheduled Measure #431: Unhealthy Alcohol Use Preventative Care & Scrn: Patient not identified as an unhealthy alcohol user PQRS Narrative: Time with Patient: Less than 30 Objective - Vital Signs Vital signs: Vital Signs Temp 97.9 F 09/15/20 11:44 Pulse 103 H 09/15/20 11:44 Resp 16 09/15/20 11:44 BP 155/98 09/15/20 11:44 Pulse Ox 95 09/15/20 11:44
== END | disposition home or self-care (01) ==
LOC: PNWHC3 11:12
PROVIDERS: ATTEND Specialist
DX: M48.02 Spinal stenosis, cervical region (principal); M50.10 Cervical disc disorder with radiculopathy, unspecified cervical region
CPT/HCPCS: 99211

== ENCOUNTER → 2021-05-26 | Outpatient (CLI) | payer MEDICAID, OTHER | END | disposition home or self-care (01) | LOC: LABWHC1 10:07 | PROVIDERS: ATTEND Emergency Medicine | DX: Z20.822 Contact with and (suspected) exposure to COVID-19 (principal) | CPT/HCPCS: 87635 ==

== ENCOUNTER → 2021-05-27 | Outpatient (CLI) | payer MEDICAID, OTHER | END | disposition home or self-care (01) | LOC: LABMAIN 10:32 | PROVIDERS: ATTEND Emergency Medicine | DX: Z20.822 Contact with and (suspected) exposure to COVID-19 (principal) | CPT/HCPCS: 87635 ==

== ENCOUNTER → 2021-06-07 | Outpatient (CLI) | payer MEDICAID ==
--- NOTE | 2021-06-08 10:55 | MM ---
Reason for exam: screening (asymptomatic). Last mammogram was performed 2 years and 1 month ago. History: Patient is postmenopausal. Reductions of both breasts, 1993. Physical Findings: A clinical breast exam by your physician is recommended on an annual basis and results should be correlated with mammographic findings. MG 3D Screening Mammo W/Cad Bilateral CC and MLO view(s) were taken. XCCL view(s) were taken of the left breast. Prior study comparison: May 07, 2019, bilateral MG 3d screening mammo w/cad. September 04, 2014, bilateral MG screening mammo w CAD. There are scattered fibroglandular densities. There are benign appearing round calcifications bilaterally. Asymmetric breast tissue left breast, stable. There is no discrete abnormality. ASSESSMENT: Benign, BI-RAD 2 RECOMMENDATION: Routine screening mammogram of both breasts in 1 year.
== END | disposition home or self-care (01) ==
LOC: RADMAMWWP 10:10
PROVIDERS: ATTEND Obstetrics & Gynecology
DX: Z12.31 Encounter for screening mammogram for malignant neoplasm of breast (principal); Z78.0 Asymptomatic menopausal state
CPT/HCPCS: 77063; 77067

== ENCOUNTER 2022-03-06 06:21 | Emergency (ER) | payer MEDICAID ==
[2022-03-06 06:31] VITALS: RESP 18
[2022-03-06] MEDS ORDERED: FAMOTIDINE 20 MG TAB PO STA (07:44)
[2022-03-06] MEDS ORDERED: dexAMETHasone 2 MG TAB PO STA (07:44)
[2022-03-06] MEDS ORDERED: LORATADINE 10 MG TAB PO STA (07:44)
--- NOTE | 2022-03-06 07:50 | ED ---
General Adult HPI - General Chief complaint: Skin/Abscess/Foreign Body Stated complaint: Rash Time Seen by Provider: 03/06/22 07:02 Source: patient Mode of arrival: ambulatory Limitations: no limitations - History of Present Illness Initial comments: Dictation was produced using [employer] dictation software. please excuse any grammatical, word or spelling errors. Chief Complaint: 51-year-old female presents with rash times one day History of Present Illness: 51-year-old female she takes antihistamines daily for seasonal ALLERGIES. Patient states she ran out recently. She was visiting [place]. She stated a hotel. Patient states that since yesterday she has been having symptoms of that she will rash. States the rash started to her hands spread to her neck and flank area. Patient also has a mild sore throat. Denies any runny nose. She does have a mild cough. No obvious sick contacts. The ROS documented in this emergency department record has been reviewed and confirmed by me. Those systems with pertinent positive or negative responses have been documented in the HPI. All other systems are other negative and/or noncontributory. PHYSICAL EXAM: General Impression: Alert and oriented x3, not in acute distress HEENT: Normocephalic atraumatic, extra-ocular movements intact, pupils equal and reactive to light bilaterally, mucous membranes moist. Cardiovascular: Heart regular rate and rhythm Chest: Able to complete full sentences, no retractions, no tachypnea Abdomen: abdomen soft, non-tender, non-distended, no organomegaly Musculoskeletal: Pulses present and equal in all extremities, no peripheral edema Motor: no focal deficits noted Neurological: CN II-XII grossly intact, no focal motor or sensory deficits noted Skin: Return to the rash to the neck, hands and lateral flanks Psych: Normal affect and mood ED course: 51-year-old female presents to the emergency department for urticarial rash. Etiology is not entirely clear however may be due to viral illness versus allergen exposure. Signs upon arrival are within acceptable limits. Patient not showing any signs of anaphylaxis. Patient reevaluated at bedside with improvement of symptoms. Patient be discharged. Advised to burr picker ALLERGY medications [id number]. - Related Data Home Medications Medication Instructions Recorded Confirmed Acetaminophen [Tylenol Extra 1,000 mg PO Q8H PRN 06/27/19 09/13/20 Strength] Ibuprofen [Motrin Ib] 400 - 600 mg PO Q8H PRN 06/27/19 09/13/20 Cholecalciferol [Vitamin D3 (25 2,000 unit PO DAILY 08/03/20 09/13/20 Mcg = 1000 Iu)] Loratadine-Pseudoeph 10-240 mg 1 tab PO DAILY PRN 09/13/20 09/13/20 [Claritin-D 24 Hour] Loratadine/Pseudoephedrine 1 tab PO DIRECTED PRN 09/13/20 09/13/20 [Alavert D-12 Allergy-Sinus Tab] Allergies Allergy/AdvReac Type Severity Reaction Status Date / Time Penicillins Allergy Rash/Hives Verified 03/06/22 06:31 Review of Systems ROS Statement: Those systems with pertinent positive or pertinent negative responses have been documented in the HPI. ROS Other: All systems not noted in ROS Statement are negative. Past Medical History Past Medical History: No Reported History Additional Past Medical History / Comment(s): recent steroids in May. History of Any Multi-Drug Resistant Organisms: None Reported Past Surgical History: Cholecystectomy, Uterine Ablation Additional Past Surgical History / Comment(s): fibroids Past Anesthesia/Blood Transfusion Reactions: No Reported Reaction Past Psychological History: No Psychological Hx Reported Smoking Status: Never smoker Past Alcohol Use History: None Reported Past Drug Use History: None Reported General Exam Limitations: no limitations Course Vital Signs 03/06/22 03/06/22 06:27 08:00 Temperature 98.2 F 99.4 F Pulse Rate 116 H 104 H Respiratory 18 18 Rate Blood Pressure 132/78 116/82 O2 Sat by Pulse 96 96 Oximetry Medical Decision Making - Lab Data Lab Results 03/06/22 03/06/22 Range/Units 07:39 07:39 Influenza Type A (PCR) Not Detected (Not Detectd) Influenza Type B (PCR) Not Detected (Not Detectd) RSV (PCR) Not Detected (Not Detectd) SARS-CoV-2 (PCR) Not Detected (Not Detectd) Group A Strep (PCR) NOT DETECTED (Not Detectd) Disposition Clinical Impression: Urticaria Disposition: HOME SELF-CARE Condition: Good Instructions (If sedation given, give patient instructions): Urticaria (ED) Is patient prescribed a controlled substance at d/c from ED?: No Referrals: Hakan Dumont DO [Primary Care Provider] - 1-2 days Time of Disposition: 10:38
[2022-03-06 11:01] VITALS: BP 142/99; PULSE 96; TEMP 98.4
== END 2022-03-06 11:01 | disposition home or self-care (01) ==
LOC: EC 06:21
DX: L50.9 Urticaria, unspecified (principal); Z20.822 Contact with and (suspected) exposure to COVID-19; Z88.0 Allergy status to penicillin
CPT/HCPCS: 87651; 87636; 99283; J8540

== ENCOUNTER 2022-03-08 04:10 | Emergency (ER) | payer MEDICAID ==
[2022-03-08 04:16] VITALS: TEMP 98.1
[2022-03-08] MEDS ORDERED: diphenhydrAMINE 50 MG/ML 1 ML VIAL IVP STA ×3 (05:44→11:47)
[2022-03-08] MEDS ORDERED: FAMOTIDINE 20 MG/2 ML VIAL IV STA (05:44)
[2022-03-08] MEDS ORDERED: methylPREDNISolone SOD SUCCI 125 MG/2 ML VIAL IV STA ×2 (05:45→11:47)
[2022-03-08] MEDS ORDERED: SODIUM CHLORIDE 0.9% 1,000 ML IV ONE (07:47)
[2022-03-08] MEDS ORDERED: hydrOXYzine HCL 25 MG TAB PO STA (07:47)
--- NOTE | 2022-03-08 07:51 | ED ---
General Adult HPI - General Chief complaint: Skin/Abscess/Foreign Body Stated complaint: Recheck rash Time Seen by Provider: 03/08/22 06:06 Source: patient, RN notes reviewed Mode of arrival: ambulatory Limitations: no limitations - History of Present Illness Initial comments: 51-year-old female presents emergency Department with chief complaint of rash. Patient states rash started on her left side a couple days ago states that has progressed to her face, upper legs, arms. Patient states she is very itchy she states she's been taking some Benadryl at home. She does admit that she was on antibiotics but has finishes prior to the rash starting states she is on Macrobid she does not which showed taken this before. She denies any difficulty swallowing difficulty breathing. Patient states the rash seems to be spreading she did receive some medication this morning. Patient denies any new products soaps lotions detergents that she is aware of. - Related Data Home Medications Medication Instructions Recorded Confirmed Acetaminophen [Tylenol Extra 1,000 mg PO Q8H PRN 06/27/19 09/13/20 Strength] Ibuprofen [Motrin Ib] 400 - 600 mg PO Q8H PRN 06/27/19 09/13/20 Cholecalciferol [Vitamin D3 (25 2,000 unit PO DAILY 08/03/20 09/13/20 Mcg = 1000 Iu)] Loratadine-Pseudoeph 10-240 mg 1 tab PO DAILY PRN 09/13/20 09/13/20 [Claritin-D 24 Hour] Loratadine/Pseudoephedrine 1 tab PO DIRECTED PRN 09/13/20 09/13/20 [Alavert D-12 Allergy-Sinus Tab] Previous Rx's Medication Instructions Recorded Famotidine [Pepcid] 20 mg PO BID #14 tablet 03/08/22 hydrOXYzine HCL [Atarax] 50 mg PO QID #20 tablet 03/08/22 predniSONE 50 mg PO DAILY #5 tab 03/08/22 Allergies Allergy/AdvReac Type Severity Reaction Status Date / Time Penicillins Allergy Rash/Hives Verified 03/08/22 04:16 Review of Systems ROS Statement: Those systems with pertinent positive or pertinent negative responses have been documented in the HPI. ROS Other: All systems not noted in ROS Statement are negative. Past Medical History Past Medical History: No Reported History Additional Past Medical History / Comment(s): recent steroids in Nov. History of Any Multi-Drug Resistant Organisms: None Reported Past Surgical History: Cholecystectomy, Uterine Ablation Additional Past Surgical History / Comment(s): fibroids Past Anesthesia/Blood Transfusion Reactions: No Reported Reaction Past Psychological History: No Psychological Hx Reported Smoking Status: Never smoker Past Alcohol Use History: None Reported Past Drug Use History: None Reported General Exam Limitations: no limitations General appearance: alert, in no apparent distress Head exam: Present: atraumatic, normocephalic, normal inspection Eye exam: Present: normal appearance, PERRL, EOMI. Absent: scleral icterus, conjunctival injection, periorbital swelling ENT exam: Present: normal exam, normal oropharynx, mucous membranes moist Neck exam: Present: normal inspection, full ROM. Absent: tenderness, meningismus, lymphadenopathy Respiratory exam: Present: normal lung sounds bilaterally. Absent: respiratory distress, wheezes, rales, rhonchi, stridor Cardiovascular Exam: Present: normal rhythm, tachycardia, normal heart sounds. Absent: systolic murmur, diastolic murmur, rubs, gallop, clicks GI/Abdominal exam: Present: soft, normal bowel sounds. Absent: distended, tenderness, guarding, rebound, rigid Back exam: Absent: CVA tenderness (R), CVA tenderness (L) Skin exam: Present: rash, urticaria Course Vital Signs 03/08/22 03/08/22 04:14 11:22 Temperature 98.1 F Pulse Rate 110 H 80 Respiratory 18 16 Rate Blood Pressure 115/70 132/82 O2 Sat by Pulse 97 95 Oximetry Medical Decision Making - Medical Decision Making 51-year-old female presented for rash. Patient does have hives is unclear what the source is for this. Patient placed on high-dose steroids, continuation of Atarax, Pepcid discuss warm environments may make symptoms worse. She is avoid scratching. Patient will follow-up with dermatology or [facility]. - Lab Data Lab Results 03/08/22 Range/Units 11:29 Urine Color Yellow Urine Appearance Clear (Clear) Urine pH 5.5 (5.0-8.0) Ur Specific Lem[place] 1.026 (1.001-1.035) Urine Protein Trace H (Negative) Urine Glucose (UA) 4+ H (Negative) Urine Ketones 2+ H (Negative) Urine Blood Negative (Negative) Urine Nitrite Negative (Negative) Urine Bilirubin Negative (Negative) Urine Urobilinogen <2.0 (<2.0) mg/dL Ur Leukocyte Esterase Negative (Negative) Disposition Clinical Impression: Urticaria Disposition: HOME SELF-CARE Condition: Stable Instructions (If sedation given, give patient instructions): Urticaria (ED) Additional Instructions: Please return to the Emergency Department if symptoms worsen or any other concerns. Prescriptions: hydrOXYzine HCL [Atarax] 50 mg PO QID #20 tablet Famotidine [Pepcid] 20 mg PO BID #14 tablet predniSONE 50 mg PO DAILY #5 tab Is patient prescribed a controlled substance at d/c from ED?: No Referrals: Hakan Dumont DO [Primary Care Provider] - 1-2 days Elysia Duffy MD [STAFF PHYSICIAN] - 1-2 days Time of Disposition: 12:22
[2022-03-08 11:24] VITALS: RESP 16
[2022-03-08 11:38] LABS: Appearance,Urine Clear (Clear); Bilirubin,Urine Negative (Negative); Blood,Urine Negative (Negative); Color,Urine Yellow; Glucose,Urine (UA) 4+ (Negative); Leukocyte Esterase,Urine Negative (Negative); Nitrite,Urine Negative (Negative); PH, Urine 5.5 (5.0-8.0); Protein,Urine Trace (Negative); Specific Gravity,Urine 1.026 (1.001-1.035); Urobilinogen,Urine <2.0 mg/dL (<2.0)
[2022-03-08 12:08] LABS: Ketones,Urine 2+ (Negative)
[2022-03-08 12:22] LABS: Glucose,Whole Blood 162 mg/dL (70-110)
[2022-03-08 12:49] VITALS: BP 138/84; PULSE 76
== END 2022-03-08 12:51 | disposition home or self-care (01) ==
LOC: EC 04:10
DX: L50.9 Urticaria, unspecified (principal); Z88.0 Allergy status to penicillin
CPT/HCPCS: 36415; 81003; 99283; 96374; 96376 ×2; 96375 ×3; 96372; 96361 ×3; J0171; J1200; J2930

== ENCOUNTER 2023-02-08 04:29 | Observation (INO) | payer MEDICAID ==
--- NOTE | 2023-02-08 05:04 | ED ---
General Adult HPI - General Chief complaint: Chest Pain Stated complaint: Chest Pain, Left arm pain, Blurry vision Time Seen by Provider: 02/08/23 04:43 Source: patient Mode of arrival: ambulatory Limitations: no limitations - History of Present Illness Initial comments: Dictation was produced using [employer] dictation software. please excuse any gram matical, word or spelling errors. Chief Complaint: 52-year-old female presents emergency department for chest pain and left thumb and left facial paresthesias History of Present Illness: And 52-year-old female no significant past medical history since the last several hours she has had symptoms of chest pressure, cough, left thumb numbness and left lower facial numbness. States her symptoms have been ongoing since midday. Patient is an employee in the hospital. She has no history of stroke or CVA. She denies any lower shoulder symptoms. No nausea or vomiting. Pain is like a dull ache. She is not taking medications. The ROS documented in this emergency department record has been reviewed and confirmed by me. Those systems with pertinent positive or negative responses have been documented in the HPI. All other systems are other negative and/or noncontributory. - Related Data Home Medications Medication Instructions Recorded Confirmed Loratadine [Claritin] 10 mg PO DAILY PRN 02/08/23 02/08/23 Allergies Allergy/AdvReac Type Severity Reaction Status Date / Time Penicillins Allergy Unknown Verified 02/08/23 07:00 Childhood Review of Systems ROS Statement: Those systems with pertinent positive or pertinent negative responses have been documented in the HPI. ROS Other: All systems not noted in ROS Statement are negative. Past Medical History Past Medical History: No Reported History Additional Past Medical History / Comment(s): recent steroids in Nov. History of Any Multi-Drug Resistant Organisms: None Reported Past Surgical History: Cholecystectomy, Uterine Ablation Additional Past Surgical History / Comment(s): fibroids Past Anesthesia/Blood Transfusion Reactions: No Reported Reaction Past Psychological History: No Psychological Hx Reported Smoking Status: Never smoker Past Alcohol Use History: None Reported Past Drug Use History: None Reported General Exam - General Exam Comments Initial Comments: PHYSICAL EXAM: General Impression: Alert and oriented x3, not in acute distress HEENT: Normocephalic atraumatic, extra-ocular movements intact, pupils equal and reactive to light bilaterally, mucous membranes moist. Cardiovascular: Heart regular rate and rhythm Chest: Able to complete full sentences, no retractions, no tachypnea Abdomen: abdomen soft, non-tender, non-distended, no organomegaly Musculoskeletal: Pulses present and equal in all extremities, no peripheral edema Motor: no focal deficits noted Neurological: CN II-XII grossly intact, no focal motor deficits noted. She reports left thumb numbness and left lower facial numbness Skin: Intact with no visualized rashes Psych: Normal affect and mood Limitations: no limitations Course Vital Signs 02/08/23 02/08/23 02/08/23 04:31 04:35 05:40 Temperature 97.8 F 97.4 F L Pulse Rate 93 84 Respiratory 18 18 18 Rate Blood Pressure 138/101 140/82 O2 Sat by Pulse 98 98 Oximetry EKG Findings - EKG Comments: EKG Findings:: My EKG interpretation: Ventricular rate 80, sinus rhythm,. Interval 165, QRS 82, QTC 417. No [place] prolongation, no QTC prolongation, no ST or T-wave changes noted. Overall, this EKG is unremarkable Medical Decision Making - Medical Decision Making Was pt. sent in by a medical professional or institution (, PA, HOLTER TECHNICIAN, urgent care, hospital, or fpc...) When possible be specific @ -No Did you speak to anyone other than the patient for history (EMS, parent, family, police, friend...)? What history was obtained from this source @ -No Did you review nursing and triage notes (agree or disagree)? Why? @ -I reviewed and agree with nursing and triage notes Were old charts reviewed (outside hosp., previous admission, EMS record, old EKG, old radiological studies, urgent care reports/EKG's, fpc records)? Report findings @ -No old charts were reviewed Differential Diagnosis (chest pain, altered mental status, abdominal pain women, abdominal pain men, vaginal bleeding, musculoskeletal, weakness, fever, dyspnea, syncope, headache, dizziness, GI bleed, back pain, seizure, CVA, palpatations, mental health)? @ - Differential CVA: Ischemic stroke, hemorrhagic stroke, brain tumor, atypical migraine, Wernicke's encephalopathy, seizure, multiple sclerosis, meningitis, encephalitis, hypoglycemia, Guillain-Aguirre, electrolytes disturbance, myasthenia gravis.... This is not meant to be an all-inclusive list EKG interpreted by me (3pts min.). @ -See above X-rays interpreted by me (1pt min.). @ -Chest x-ray is nonacute CT interpreted by me (1pt min.). @ -Computed tomography scan of the brain shows no acute processes. No bleeding U/S interpreted by me (1pt. min.). @ -None done What testing was considered but not performed or refused? (CT, X-rays, U/S, labs)? Why? @ -None What meds were considered but not given or refused? Why? @ -None Did you discuss the management of the patient with other professionals (professionals i.e. , PA, HOLTER TECHNICIAN, lab, RT, psych nurse, mental health social worker, senior account executive, teacher, [employer] officer, lead case manager)? Give summary @ -Discussed with Veronica Cabrera for admission Was smoking cessation discussed for >3mins.? @ -No Was critical care preformed (if so, how long)? @ -No Were there social determinants of health that impacted care today? How? (Homelessness, low income, unemployed, alcoholism, drug addiction, transportation, low edu. Level, literacy, decrease access to med. care, usp, rehab)? @ -No Was there de-escalation of care discussed even if they declined (Discuss DNR or withdrawal of care, Hospice)? DNR status @ -No What co-morbidities impacted this encounter? (DM, HTN, Smoking, COPD, CAD, Cancer, CVA, ARF, Chemo, Hep., AIDS, mental health diagnosis, sleep apnea, morbid obesity)? @ -None Was patient admitted / discharged? Hospital course, mention meds given and route, prescriptions, significant lab abnormalities, going to OR and other pertinent info. @ -52-year-old female presents emergency Department with vague symptoms of chest ache, cough, left upper extremity and left facial sensory deficit. Vital signs are stable. Laboratory evaluation unremarkable. CT brain shows no bleed. Involvement of isolated left lower face and left upper extremities symptoms raises suspicion of possible CVA. Patient given aspirin. Patient will be admitted with consultation to neurology Undiagnosed new problem with uncertain prognosis? @ -No Drug Therapy requiring intensive monitoring for toxicity (Heparin, Nitro, Insulin, Cardizem)? @ -No Were any procedures done? @ -No Diagnosis/symptom? Acute, or Chronic, or Acute on Chronic? Uncomplicated (without systemic symptoms) or Complicated (systemic symptoms)? @ -1. Sensory deficit Side effects of treatment? @ -No Exacerbation, Progression, or Severe Exacerbation? @ -No Poses a threat to life or bodily function? How? (Chest pain, [place], PR, pneumonia, PE, COPD, DKA, ARF, appy, cholecystitis, CVA, Diverticulitis, Homicidal, Suicidal, threat to staff... and all critical care pts) @ -yes - Lab Data Result diagrams: 02/08/23 05:20 02/08/23 05:20 Lab Results 02/08/23 02/08/23 02/08/23 Range/Units 05:00 05:20 05:20 WBC 6.2 (3.8-10.6) k/uL RBC 4.76 (3.80-5.40) m/uL Hgb 14.0 (11.4-16.0) gm/dL Hct 42.0 (34.0-46.0) % MCV 88.2 (80.0-100.0) fL MCH 29.3 (25.0-35.0) pg MCHC 33.3 (31.0-37.0) g/dL RDW 13.0 (11.5-15.5) % Plt Count 234 (150-450) k/uL MPV 8.1 Neutrophils % 65 % Lymphocytes % 26 % Monocytes % 5 % Eosinophils % 1 % Basophils % 0 % Neutrophils # 4.0 (1.3-7.7) k/uL Lymphocytes # 1.6 (1.0-4.8) k/uL Monocytes # 0.3 (0-1.0) k/uL Eosinophils # 0.1 (0-0.7) k/uL Basophils # 0.0 (0-0.2) k/uL PT 14.9 H (9.0-12.0) sec INR 1.5 H (<1.2) APTT 26.8 (22.0-30.0) sec Sodium (137-145) mmol/L Potassium (3.5-5.1) mmol/L Chloride (98-107) mmol/L Carbon Dioxide (22-30) mmol/L Anion Gap mmol/L BUN (7-17) mg/dL Creatinine (0.52-1.04) mg/dL Est GFR (CKD-EPI)AfAm (>60 ml/min/1.73 sqM) Est GFR (CKD-EPI)NonAf (>60 ml/min/1.73 sqM) Glucose (74-99) mg/dL Calcium (8.4-10.2) mg/dL Total Bilirubin (0.2-1.3) mg/dL AST (14-36) U/L ALT (4-34) U/L Alkaline Phosphatase (38-126) U/L Troponin I (0.000-0.034) ng/mL Total Protein (6.3-8.2) g/dL Albumin (3.5-5.0) g/dL Influenza Type A (PCR) Not Detected (Not Detectd) Influenza Type B (PCR) Not Detected (Not Detectd) RSV (PCR) Not Detected (Not Detectd) SARS-CoV-2 (PCR) Not Detected (Not Detectd) 02/08/23 02/08/23 Range/Units 05:20 05:20 WBC (3.8-10.6) k/uL RBC (3.80-5.40) m/uL Hgb (11.4-16.0) gm/dL Hct (34.0-46.0) % MCV (80.0-100.0) fL MCH (25.0-35.0) pg MCHC (31.0-37.0) g/dL RDW (11.5-15.5) % Plt Count (150-450) k/uL MPV Neutrophils % % Lymphocytes % % Monocytes % % Eosinophils % % Basophils % % Neutrophils # (1.3-7.7) k/uL Lymphocytes # (1.0-4.8) k/uL Monocytes # (0-1.0) k/uL Eosinophils # (0-0.7) k/uL Basophils # (0-0.2) k/uL PT (9.0-12.0) sec INR (<1.2) APTT (22.0-30.0) sec Sodium 139 (137-145) mmol/L Potassium 3.4 L (3.5-5.1) mmol/L Chloride 104 (98-107) mmol/L Carbon Dioxide 25 (22-30) mmol/L Anion Gap 10 mmol/L BUN 13 (7-17) mg/dL Creatinine 0.77 (0.52-1.04) mg/dL Est GFR (CKD-EPI)AfAm >90 (>60 ml/min/1.73 sqM) Est GFR (CKD-EPI)NonAf 89 (>60 ml/min/1.73 sqM) Glucose 128 H (74-99) mg/dL Calcium 8.9 (8.4-10.2) mg/dL Total Bilirubin 0.9 (0.2-1.3) mg/dL AST 49 H (14-36) U/L ALT 58 H (4-34) U/L Alkaline Phosphatase 94 (38-126) U/L Troponin I <0.012 (0.000-0.034) ng/mL Total Protein 7.3 (6.3-8.2) g/dL Albumin 4.2 (3.5-5.0) g/dL Influenza Type A (PCR) (Not Detectd) Influenza Type B (PCR) (Not Detectd) RSV (PCR) (Not Detectd) SARS-CoV-2 (PCR) (Not Detectd) Disposition Clinical Impression: Sensory deficit, left Disposition: ADMITTED IP TO THIS [facility] Condition: Fair Decision Time: 07:22
[2023-02-08 05:42] LABS: Basophils % (A) 0 %; Eosinophils # (A) 0.1 k/uL (0-0.7); Eosinophils % (A) 1 %; Lymphocytes # (A) 1.6 k/uL (1.0-4.8); Lymphocytes % (A) 26 %; MCH 29.3 pg (25.0-35.0); MCHC 33.3 g/dL (31.0-37.0); MCV 88.2 fL (80.0-100.0); Mean Platelet Volume 8.1; Monocytes # (A) 0.3 k/uL (0-1.0); Monocytes % (A) 5 %; Neutrophils % (A) 65 %; Platelet Count 234 k/uL (150-450); RBC 4.76 m/uL (3.80-5.40); WBC 6.2 k/uL (3.8-10.6)
[2023-02-08 05:55] LABS: INR 1.5 (<1.2); Partial Thromboplastin Time 26.8 sec (22.0-30.0); Prothrombin Time 14.9 sec (9.0-12.0)
[2023-02-08 06:04] LABS: ALT 58 U/L (4-34); AST 49 U/L (14-36); African American GFR (CKD) >90 (>60 ml/min/1.73 sqM); Albumin 4.2 g/dL (3.5-5.0); Alkaline Phosphatase 94 U/L (38-126); Anion Gap 10 mmol/L; Blood Urea Nitrogen 13 mg/dL (7-17); Calcium 8.9 mg/dL (8.4-10.2); Carbon Dioxide 25 mmol/L (22-30); Chloride 104 mmol/L (98-107); Glucose 128 mg/dL (74-99); Non-African American GFR(CKD) 89 (>60 ml/min/1.73 sqM); Potassium 3.4 mmol/L (3.5-5.1); Sodium 139 mmol/L (137-145); Total Bilirubin 0.9 mg/dL (0.2-1.3); Total Protein 7.3 g/dL (6.3-8.2)
[2023-02-08] MEDS ORDERED: NALOXONE 0.4 MG/ML 1 ML VIAL IV PRN (06:39)
[2023-02-08] MEDS ORDERED: ASPIRIN 81 MG PO STA (06:40)
[2023-02-08] MEDS: SODIUM CHLORIDE 0.9% 1,000 ML IV SCH (06:55)
--- NOTE | 2023-02-08 07:16 | CT ---
EXAMINATION TYPE: CT brain wo con DATE OF EXAM: 02/08/2023 COMPARISON: none HISTORY: suspect cva Unenhanced CT of the brain was performed. The ventricles, basal cisterns and sulci overlying the cerebral convexities demonstrate mild enlargem ent. There is no evidence for intracranial hemorrhage or sulcal effacement. There is decreased attenuation about the periventricular white matter and deep white matter of both c erebral hemispheres, compatible with chronic small vessel ischemia. Differential diagnosis does inclu de demyelination. No mass effects are seen.No midline shift. Osseous calvarium is intact. If symptoms persist consider MRI. IMPRESSION: 1. Age related atrophic and chronic small vessel ischemic change without acute intracranial process s een at this time.
--- NOTE | 2023-02-08 07:26 | XR ---
EXAMINATION TYPE: XR chest 2V DATE OF EXAM: 02/08/2023 COMPARISON: NONE HISTORY: Shortness of breath TECHNIQUE: Frontal and lateral views of the chest are obtained. FINDINGS: Scattered senescent parenchymal changes noted. Hyperinflation compatible with COPD. No evidence for infiltrate. No evidence for atelectasis. Heart size is stable. Mediastinal structures are stable and grossly unremarkable. No evidence for hilar prominence. Degenerative changes dorsal spine. IMPRESSION: 1. No evidence for acute pulmonary disease.
--- NOTE | 2023-02-08 12:35 | US ---
EXAMINATION TYPE: US carotid duplex BILAT DATE OF EXAM: 02/08/2023 COMPARISON: NONE CLINICAL INDICATION: Female, 52 years old with history of Slurred speech; numbness TECHNIQUE: Carotid duplex ultrasound examination. Indirect Doppler criteria was utilized. FINDINGS: EXAM MEASUREMENTS: RIGHT: Peak Systolic Velocity (PSV) cm/sec ----- Right CCA: 87.1 ----- Right ICA: 92.4 ----- Right ECA: 141.5 ICA/CCA ratio: 1.1 RIGHT: End Diastole cm/sec ----- Right CCA: 23.1 ----- Right ICA: 39.2 ----- Right ECA: 20.7 LEFT: Peak Systolic Velocity (PSV) cm/sec ----- Left CCA: 106.6 ----- Left ICA: 90.4 ----- Left ECA: 96.9 ICA/CCA ratio: 0.8 LEFT: End Diastole cm/sec ----- Left CCA: 32.3 ----- Left ICA: 27.6 ----- Left ECA: 16.2 VERTEBRALS (direction of flow): Right Vertebral: Antegrade Left Vertebral: Antegrade Rhythm: Normal LEGAL SPECIALIST NOTES: No significant stenosis seen IMPRESSION: No significant hemodynamic stenosis. Criteria for Assigning % of Stenosis / Diameter reduction (Estimation based on the indirect measurements of the internal carotid artery velocities (ICA PSV). 1. Normal (no stenosis)=ICA PSV < 125 cm/s: ratio < 2.0: ICA EDV<40 cm/s. 2. Less than 50% stenosis=ICA PSV < 125 cm/s: ratio < 2.0: ICA EDV<40 cm/s. 3. 50 to 69% stenosis=ICA PSV of 125 to 230 cm/s: ration 2.0 ? 4.0: ICA EDV 40-100 cm/s. 4. Greater than 70% stenosis to near occlusion= ICA PSV > 230 cm/s: ratio > 4.0: ICA EDV > 100 cm/s. 5. Near occlusion= ICA PSV velocities may be low or undetectable: variable ratio and ICA EDV. 6. Total occlusion=unable to detect flow.
--- NOTE | 2023-02-08 12:54 | CA ---
Transthoracic Echo Report Name: Flori Raza Age: 52 Gender: F : 1970 Exam Date: 02/08/2023 11:32 Exam Location: [facility] [facility] Ht (in): 65 Wt (lb): 200 Ordering Physician: Иван Xiao MD Attending/Referring Phys: Double Surface Operator José Miguel Armstrong Procedure CPT: Indications: Slurred speech, CVA Cardiac Hx: Technical Quality: Technically difficult study Contrast 1: Total Dose (mL): Contrast 2: Total Dose (mL): MEASUREMENTS (Male / Female) Normal Values 2D ECHO LV Diastolic Diameter PLAX 4.9 cm 4.2 - 5.9 / 3.9 - 5.3 cm LV Systolic Diameter PLAX 3.1 cm IVS Diastolic Thickness 1.2 cm 0.6 - 1.0 / 0.6 - 0.9 cm LVPW Diastolic Thickness 1.2 cm 0.6 - 1.0 / 0.6 - 0.9 cm LV Relative Wall Thickness 0.5 RV Internal Dim ED PLAX 2.4 cm LVOT Diameter 2.1 cm Aortic Root Diameter 2.5 cm LA Systolic Diameter LX 3.1 cm 3.0 - 4.0 / 2.7 - 3.8 cm LV Diastolic Volume MOD BP 45.2 cm??? 67 - 155 / 56 - 104 cm??? LV Systolic Volume MOD BP 13.7 cm??? - 58 / 19 - 49 cm??? LV Ejection Fraction MOD BP 69.7 % >= 55 % LV Cardiac Index MOD BP 1214.2 cm???/min???m??? LV Diastolic Volume MOD 4C 60.2 cm??? LV Systolic Volume MOD 4C 17.4 cm??? LV Ejection Fraction MOD 4C 71.0 % LV Cardiac Index MOD 4C 1649.2 cm???/min???m??? LV Diastolic Length 4C 7.1 cm LV Systolic Length 4C 5.9 cm LV Diastolic Volume MOD 2C 33.9 cm??? LV Systolic Volume MOD 2C 11.4 cm??? LV Ejection Fraction MOD 2C 66.4 % LV Cardiac Index MOD 2C 866.4 cm???/min???m??? LV Diastolic Length 2C 7.1 cm LV Systolic Length 2C 5.8 cm LA Volume 40.3 cm??? 18 - 58 / 22 - 52 cm??? DOPPLER AV Peak Velocity 147.0 cm/s AV Peak Gradient 8.6 mmHg LVOT Peak Velocity 98.1 cm/s LVOT Peak Gradient 3.9 mmHg AV Area Cont Eq pk 2.3 cm??? MV Peak Velocity 111.2 cm/s MV Peak Gradient 4.9 mmHg MV Mean Velocity 50.4 cm/s MV Mean Gradient 1.3 mmHg MV Velocity Time Integral 32.3 cm MR Peak Velocity 164.6 cm/s MR Peak Gradient 10.8 mmHg Mitral E Point Velocity 78.9 cm/s Mitral A Point Velocity 86.2 cm/s Mitral E to A Ratio 0.9 MV Deceleration Time 201.5 ms MV E' Velocity 8.8 cm/s Mitral E to MV E' Ratio 9.0 TR Peak Velocity 151.8 cm/s TR Peak Gradient 9.2 mmHg Right Ventricular Systolic Press 14.3 mmHg PV Peak Velocity 192.8 cm/s PV Peak Gradient 14.9 mmHg FINDINGS Left Ventricle Normal LV size and wall thickness. Left ventricular ejection fraction is estimated at 55-60 %. No obvious regional wall motion abnormality. No significant diastolic dysfunction. Right Ventricle Normal right ventricular size and function. Right Atrium Normal right atrial size. Left Atrium Normal left atrial size. Mitral Valve Structurally normal mitral valve. Trace MR. Aortic Valve Trileaflet aortic valve. No aortic valve stenosis or regurgitation. Tricuspid Valve Tricuspid valve not well visualized. Mild TR. Pulmonic Valve Pulmonic valve not well visualized. No pulmonic regurgitation. Pericardium No pericardial effusion. Aorta Normal size aortic root. CONCLUSIONS Off axis apical views. Normal LV size and wall thickness. Left ventricular ejection fraction is estimated at 55-60 %. No obvious regional wall motion abnormality. No significant chamber size abnormality No significant valvular heart disease No prior echo to compare with in [employer] database Previewed by: Dr Kip Alvarado (Electronically Signed) Final Date: 08 February 2023 12:53
--- NOTE | 2023-02-08 13:19 | P.CNNES ---
History of Present Illness Consult date: 02/08/23 Requesting physician: Arthur Rose Reason for Consult: suspect cva History of Present Illness: This is a 2-year-old woman who presented to our emergency department because of chest pain, left thumb numbness as well as left lip numbness. Patient stated that she's going on to a lot of stress and she is in the middle of a divorce. She stated that yesterday around noon she noticed chest pain as well as the left thumb numbness and left lower lip numbness. She stated the left lower lip has resolved. She denies of any weakness at. She felt her vision is blurry in both eyes recently. Denies any other neurological issues. Denies of any new neck pain. She has a an old left wrist nerve She denies any history of stroke. Denies history of multiple sclerosis. She is not on any antiplatelets. Patient denies of any tobacco use. She rarely drinks alcohol. Denies of any illicit drug use. Some of the workup during his hospital visit consisted of: CT of the head is reported as age-related atrophy and chronic small vessel ischemic change without acute intracranial process seen at this time. I personally reviewed the CT head and there is no acute or subacute ischemia. Carotid duplex is reported as no significant hemodynamic stenosis. 2-D echo was reported as normal left ventricle size and wall thickness. Ejection fraction of 55-60%. TSH is 2.660. Review of Systems Review of system: The 12 point system was reviewed and apparent positive and negative per HPI. Past Medical History Past Medical History: No Reported History Additional Past Medical History / Comment(s): recent steroids in May. History of Any Multi-Drug Resistant Organisms: None Reported Past Surgical History: Cholecystectomy, Uterine Ablation Additional Past Surgical History / Comment(s): fibroids Past Anesthesia/Blood Transfusion Reactions: No Reported Reaction Past Psychological History: No Psychological Hx Reported Smoking Status: Never smoker Past Alcohol Use History: None Reported Past Drug Use History: None Reported Medications and Allergies Home Medications Medication Instructions Recorded Confirmed Type Loratadine [Claritin] 10 mg PO DAILY PRN 02/08/23 02/08/23 History Allergies Allergy/AdvReac Type Severity Reaction Status Date / Time Penicillins Allergy Unknown Verified 02/08/23 07:00 Childhood Physical Examination - Vital Signs Vital Signs: Vital Signs Temp Pulse Resp BP Pulse Ox 02/08/23 11:16 88 20 134/102 97 02/08/23 07:40 77 14 133/81 96 02/08/23 05:40 18 02/08/23 04:35 97.4 F L 84 18 140/82 98 02/08/23 04:31 97.8 F 93 18 138/101 98 Intake and Output 02/07/23 02/08/23 02/08/23 22:59 06:59 14:59 Other: Weight 90.718 kg GENERAL: The patient is lying in bed and is not in acute distress. NEUROLOGICAL: Higher mental function: The patient is awake, alert, oriented to self, place and time. Patient is following commands. No aphasia and no neglect. Cranial nerves: The pupils are round, equal and reactive to light and accommodation. Visual potts are full to confrontation throughout. Extraocular movement is intact no nystagmus is noted. Facial sensation is normal to touch throughout. The facial strength is normal throughout. Hearing is normal bilaterally to hand rub. Tongue is midline and moved [id number] without any difficulty. No dysarthria is noted. Shoulder shrug is normal bilaterally. Motor: The strength is 5 over 5 throughout. Normal tone and bulk. Cerebellum: Normal finger to nose heel to crabtree bilaterally. Sensation: Sensation is decreased out of entire left thumb. Otherwise normal to touch throughout. Reflexes (right/left): 1+ throughout. Plantars are downgoing bilaterally. Results - Laboratory Findings CBC and BMP: 02/08/23 05:20 02/08/23 05:20 Abnormal Lab Findings: Abnormal Labs 02/08/23 02/08/23 05:20 05:20 PT 14.9 H INR 1.5 H Potassium 3.4 L Glucose 128 H AST 49 H ALT 58 H Assessment and Plan Assessment: This is a 52-year-old woman who was going under a lot of stress, in the process of getting a divorce who presented to our facility because of chest pain, left thumb numbness and left lower lip numbness. Her left lower lip numbness is resolved. Acute left thumb numbness and transient left lower lip numbness: Rule out stroke. Cannot exclude underlying stress as a culprit but first we need to rule out any acute ischemia not seen on CT head. History of left "pinched nerve in neck" according to the patient Acute distress and is in the process of divorce Plan: In the ED the patient was given aspirin 324 mg once. I started the patient on aspirin 81 mg and Lipitor 20 mm daily at bedtime for secondary stroke prophylaxis for now. I'll hold off on dual antiplatelets until MRI the brain is back. If MRI does reveal acute ischemia and then recommend dual antiplatelets of aspirin and Plavix. I ordered MRI of the brain and MRI of the cervical spine to rule out any acute ischemia or any significant cervical stenosis leading to cervical radiculopathy. Hemoglobin A1c and lipid panels orders pending I ordered Lyme B12, folate level Continue neuro checks On cardiac monitoring Consult PT and OT Notified the patient that she needs to follow-up without outpatient psychiatrist or therapist. We'll defer the rest of the medical message with the primary team DVT prophylaxis I started the patient on subcu heparin 5000 unit every 12 hours. The plan discussed with the patient and her primary team. Thank you for the consultation. Time with Patient: Greater than 30
--- NOTE | 2023-02-08 13:34 | P.HPIM ---
History of Present Illness H&P Date: 02/08/23 History of present illness; patient is a 52-year-old lady with no significant pa st medical history who presented to the ER because of chest pain and left hand numbness. Patient stated she was all right yesterday when she started noticing chest pressure and was central in location, which is nonradiating, no aggravating or relieving factors associated with this chest pressure. She also started noticing numbness of her left thumb and lethargy of her face. There was no slurred speech, no facial droop. No weakness of any extremity. Because of the symptoms, patient came to the ER Initial lab work done in the ER showed WBC 6.2, hemoglobin 14, platelet count 234, sodium 139, potassium 3.4, BUN 13, creatinine 0.77, AST 49, ALT 58 EKG done in the ER showed regular rate 80, VT 165, QRS duration, 82, no T-wave inversion, no ST elevations seen in any leads Chest x-ray done in the ER showed no acute cardio pulmonaryProcess CT brain done showed age-related atrophy And chronic small vessel ischemic changes REVIEW OF SYSTEMS: CONSTITUTIONAL: No fever, no malaise, no fatigue. HEENT: No recent visual problems or hearing problems. Denied any sore throat. CARDIOVASCULAR: As mentioned in HPI PULMONARY: No shortness of breath, no cough, no hemoptysis. GASTROINTESTINAL: No diarrhea, no nausea, no vomiting, no abdominal pain. NEUROLOGICAL: As mentioned in HPI HEMATOLOGICAL: Denies any bleeding or petechiae. GENITOURINARY: Denies any burning micturition, frequency, or urgency. MUSCULOSKELETAL/RHEUMATOLOGICAL: Denies any joint pain, swelling, or any muscle pain. ENDOCRINE: Denies any polyuria or polydipsia. The rest of the 14-point review of systems is negative. PHYSICAL EXAMINATION: GENERAL: The patient is alert and oriented x3, not in any acute distress. Well developed, well nourished. HEENT: Pupils are round and equally reacting to light. EOMI. No scleral icterus. No conjunctival pallor. Normocephalic, atraumatic. No pharyngeal erythema. No thyromegaly. CARDIOVASCULAR: S1 and S2 present. No murmurs, rubs, or gallops. PULMONARY: Chest is clear to auscultation, no wheezing or crackles. ABDOMEN: Soft, nontender, nondistended, normoactive bowel sounds. No palpable organomegaly. MUSCULOSKELETAL: No joint swelling or deformity. EXTREMITIES: No cyanosis, clubbing, or pedal edema. NEUROLOGICAL: Gross neurological examination did not reveal any focal deficits. SKIN: No rashes. Assessment and plan Chest pain Facial numbness Hypokalemia Monitor vital signs Monitor CBC Monitor CMP Continue telemetry monitoring monitor troponin Ordered 2-D echo Ordered ultrasound of carotids Consult cardiology Consult neurology Labs and medication were reviewed.. Continue same treatment. Continue with symptomatic treatment. Resume home medication. Monitor labs and vitals. DVT and GI prophylaxis. Further recommendations as per clinical course of the patient Dictation was produced using [employer] dictation software. please excuse any grammatical, word or spelling errors. Past Medical History Past Medical History: No Reported History Additional Past Medical History / Comment(s): recent steroids in May. History of Any Multi-Drug Resistant Organisms: None Reported Past Surgical History: Cholecystectomy, Uterine Ablation Additional Past Surgical History / Comment(s): fibroids Past Anesthesia/Blood Transfusion Reactions: No Reported Reaction Past Psychological History: No Psychological Hx Reported Smoking Status: Never smoker Past Alcohol Use History: None Reported Past Drug Use History: None Reported Medications and Allergies Home Medications Medication Instructions Recorded Confirmed Type Loratadine [Claritin] 10 mg PO DAILY PRN 02/08/23 02/08/23 History Allergies Allergy/AdvReac Type Severity Reaction Status Date / Time Penicillins Allergy Unknown Verified 02/08/23 07:00 Childhood Physical Exam Vitals: Vital Signs Temp Pulse Resp BP Pulse Ox 02/08/23 07:40 77 14 133/81 96 02/08/23 05:40 18 02/08/23 04:35 97.4 F L 84 18 140/82 98 02/08/23 04:31 97.8 F 93 18 138/101 98 Intake and Output 02/07/23 02/08/23 02/08/23 22:59 06:59 14:59 Other: Weight 90.718 kg Results CBC & Chem 7: 02/08/23 05:20 02/08/23 05:20 Labs: Abnormal Lab Results - Last 24 Hours (Table) 02/08/23 02/08/23 Range/Units 05:20 05:20 PT 14.9 H (9.0-12.0) sec INR 1.5 H (<1.2) Potassium 3.4 L (3.5-5.1) mmol/L Glucose 128 H (74-99) mg/dL AST 49 H (14-36) U/L ALT 58 H (4-34) U/L
[2023-02-08 16:17] LABS: Chol/HDL Ratio 4.15 Ratio; LDL Cholesterol,Calculated 126.6 mg/dL (0.0-131.0); VLDL Calculation 17.58 mg/dL (5.00-40.00)
[2023-02-08] MEDS ORDERED: Potassium Replacement Protocol 1 EACH MISC MISCELLANE PRN (19:14)
[2023-02-08] MEDS: POTASSIUM CHLORIDE ER 20 MEQ TAB.ER PO SCH ×2 (20:24→23:44)
[2023-02-08] MEDS: HEPARIN SODIUM,PORCINE/PF 5,000 UNIT/0.5 ML SYRINGE SQ SCH (20:25)
[2023-02-08] MEDS ORDERED: ATORVASTATIN 20 MG TAB PO SCH (21:00)
[2023-02-09] MEDS: SODIUM CHLORIDE 0.9% 1,000 ML IV SCH (07:56)
[2023-02-09] MEDS: HEPARIN SODIUM,PORCINE/PF 5,000 UNIT/0.5 ML SYRINGE SQ SCH (08:00)
[2023-02-09 08:04] VITALS: RESP 16
[2023-02-09] MEDS ORDERED: ASPIRIN 81 MG PO SCH (09:00)
--- NOTE | 2023-02-09 11:47 | P.CRDCN ---
History of Present Illness Consult date: 02/09/23 Consult reason: chest pain History of present illness: History of present illness: This is a 52-year-old female with no previous cardiac history. No significant past medical history. Patient states that she had a pulling sensation across her chest with numbness in her left hand and arm discomfort and in general didn't feel right. She also had tingling of her lip and some blurred vision. She denies any weaknesses. No slurred speech. She denies any palpitations. All symptoms have resolved except for some numbness in her hand. She's never had this type of sensation before. No chest pain in the past. Denies any exertional dyspnea. She is a nonsmoker, rare alcohol use, no illicit drug use. Family history father at age 72 from a myocardial infarction. Patient is undergoing workup by neurology as scheduled for an MRI today of the brain EKG sinus rhythm Chest x-ray: no acute pulmonary disease CAT scan of the brain revealed age-related atrophy and chronic small vessel ischemic changes Carotid ultrasound revealed no significant hemodynamic stenosis bilaterally. Echocardiogram performed on this admission revealed EF of 55-60%. CBC within normal limits. INR 1.5. Potassium 3.4. BUN 13 creatinine 0.77. Troponin negative 3. Hemoglobin A1c 6.7. AST 49 and ALT 58. Cholesterol 87, LDL 126, HDL 45. Influenza A, influenza B, Covid 19, RSD not detected. Home cardiac medications:None Review Of Systems: At the time of my evaluation: Constitutional: No fever, no chills. No weakness, fatigue or lethargy. EENT: No headache. No dizziness. Lungs: No shortness of breath, cough, no sputum production. No wheezing. Cardiovascular: No chest pain, no lower extremity edema. No palpitations. No paroxysmal nocturnal dyspnea. No orthopnea. No lightheadedness or dizziness. No syncopal episodes. Abdominal: No abdominal pain. No nausea, vomiting. No diarrhea. No constipation. No bloody or tarry stools. Genitourinary: No dysuria.. No urinary retention. Musculoskeletal: No myalgias. No muscle weakness, no frequent falls. No back pleft hand numbness Integumentary: No wounds. No rash. No unusual bruising. Neurologic: No aphasia. No facial droop. No change in mentation. No head injury. No headache. Physical examination: Gen: This is 52-year-old female. She is resting in a chair and appears to be comfortable and in no acute distress VS reviewed HEENT: Head is atraumatic, normocephalic. Pupils equal, round. Sclerae is anicteric. NECK: Supple. No JVD. . LUNGS: Clear to auscultation. No wheezes or rhonchi. No intercostal retractions. HEART: Regular rate and rhythm. No murmur. ABDOMEN: Soft No tenderness. EXTREMITIES: No pedal edema. No calf tenderness. NEUROLOGICAL: Patient is awake, alert and oriented x3. Assessment: Chest pain Left arm discomfort with numbness in the left hand and lower lip Borderline diabetes Plan: Agree with use of statin DM management by primary No further cardiac workup on this hospital stay Patient is cleared for discharge home and may follow-up in the office in one week for further cardiac workup. Thank you kindly for this consultation. Nurse practitioner note has been reviewed, I agree with documented findings and plan of care. Patient was seen and examined. Past Medical History Past Medical History: No Reported History Additional Past Medical History / Comment(s): recent steroids in May. History of Any Multi-Drug Resistant Organisms: None Reported Past Surgical History: Cholecystectomy, Uterine Ablation Additional Past Surgical History / Comment(s): fibroids Past Anesthesia/Blood Transfusion Reactions: No Reported Reaction Past Psychological History: No Psychological Hx Reported Smoking Status: Never smoker Past Alcohol Use History: None Reported Past Drug Use History: None Reported - Past Family History Father Family Medical History: Myocardial Infarction ([place]) Additional Family Medical History / Comment(s): of massive heart attack. Mother Family Medical History: GERD/Reflux, Hyperlipidemia Medications and Allergies Home Medications Medication Instructions Recorded Confirmed Type Loratadine [Claritin] 10 mg PO DAILY PRN 02/08/23 02/08/23 History Allergies Allergy/AdvReac Type Severity Reaction Status Date / Time Penicillins Allergy Unknown Verified 02/08/23 07:00 Childhood Physical Exam Vitals: Vital Signs Temp Pulse Pulse Resp BP BP Pulse Ox 02/09/23 04:00 98 F 74 14 127/69 98 02/08/23 23:41 98.3 F 72 16 112/58 98 02/08/23 20:00 97.7 F 75 16 138/77 99 02/08/23 15:35 98.2 F 84 16 138/85 96 02/08/23 14:36 82 02/08/23 14:15 98.1 F 82 16 146/91 97 02/08/23 13:58 95 18 128/82 97 02/08/23 11:16 88 20 134/102 97 02/08/23 07:40 77 14 133/81 96 Intake and Output 02/08/23 02/09/23 02/09/23 22:59 06:59 14:59 Other: Voiding Method Toilet Toilet # Voids 2 3 Results 02/08/23 05:20 02/08/23 05:20 Cardiac Enzymes 02/08/23 02/08/23 Range/Units 10:28 13:08 Troponin I <0.012 <0.012 (0.000-0.034) ng/mL Lipids 02/08/23 Range/Units 10:28 Triglycerides 87.90 (0.00-149.00) mg/dL Cholesterol 190.00 (0.00-200.00) mg/dL HDL Cholesterol 45.80 (40.00-60.00) mg/dL Cholesterol/HDL Ratio 4.15 Ratio Current Medications Generic Name Dose Route Start Last Admin Trade Name Freq PRN Reason Stop Dose Admin Aspirin 81 mg 02/09/23 09:00 Aspirin 81 Mg PO DAILY JANAY Atorvastatin Calcium 20 mg 02/08/23 21:00 02/08/23 20:25 Atorvastatin 20 Mg Tab PO 20 mg HS JANAY Administration Heparin Sodium (Porcine) 5,000 unit 02/08/23 21:00 02/08/23 20:25 Heparin Sodium,Porcine/Pf 5,000 Unit/0.5 Ml Syringe SQ 5,000 unit Q12HR JANAY Administration Sodium Chloride 1,000 mls @ 20 mls/hr 02/08/23 06:45 02/08/23 06:55 Saline 0.9% IV 20 mls/hr .Q24H JANAY Administration Miscellaneous Information 1 each 02/08/23 19:14 Potassium Replacement Protocol 1 Each Misc MISCELLANE DAILY PRN Per Protocol Protocol Naloxone HCl 0.2 mg 02/08/23 06:39 Naloxone 0.4 Mg/Ml 1 Ml Vial IV Q2M PRN Opioid Reversal Intake and Output 02/08/23 02/09/23 02/09/23 22:59 06:59 14:59 Other: Voiding Method Toilet Toilet # Voids 2 3 02/08/23 05:20 02/08/23 05:20
--- NOTE | 2023-02-09 12:24 | P.PN ---
Subjective Progress Note Date: 02/09/23 patient is a 52-year-old lady with no significant past medical history who presented to the ER because of chest pain and left hand numbness. Patient stated she was all right yesterday when she started noticing chest pressure and was central in location, which is nonradiating, no aggravating or relieving factors associated with this chest pressure. She also started noticing numbness of her left thumb and lethargy of her face. There was no slurred speech, no facial droop. No weakness of any extremity. Because of the symptoms, patient came to the ER Initial lab work done in the ER showed WBC 6.2, hemoglobin 14, platelet count 234, sodium 139, potassium 3.4, BUN 13, creatinine 0.77, AST 49, ALT 58 EKG done in the ER showed regular rate 80, MI 165, QRS duration, 82, no T-wave inversion, no ST elevations seen in any leads Chest x-ray done in the ER showed no acute cardio pulmonaryProcess CT brain done showed age-related atrophy And chronic small vessel ischemic changes 02/17. Patient seen and examined. Laying comfortably in the bed. MRI brain still pending REVIEW OF SYSTEMS: CONSTITUTIONAL: No fever, no malaise,. CARDIOVASCULAR: No chest pain, no palpitations, no syncope. PULMONARY: No shortness of breath, no cough, GASTROINTESTINAL: No diarrhea, no nausea, no vomiting, no abdominal pain. NEUROLOGICAL: No headaches, no weakness, PHYSICAL EXAMINATION: GENERAL: The patient is alert and oriented x3, not in any acute distress. Well developed, well nourished. HEENT: Pupils are round and equally reacting to light. EOMI. No scleral icterus. No conjunctival pallor. Normocephalic, atraumatic. No pharyngeal erythema. No thyromegaly. CARDIOVASCULAR: S1 and S2 present. No murmurs, rubs, or gallops. PULMONARY: Chest is clear to auscultation, no wheezing or crackles. ABDOMEN: Soft, nontender, nondistended, normoactive bowel sounds. No palpable organomegaly. MUSCULOSKELETAL: No joint swelling or deformity. EXTREMITIES: No cyanosis, clubbing, or pedal edema. NEUROLOGICAL: Gross neurological examination did not reveal any focal deficits. SKIN: No rashes. Assessment and plan Chest pain Facial numbness Hypokalemia Monitor vital signs Monitor CBC Monitor CMP Continue telemetry monitoring monitor troponin 2-D echo showed normal LV function, no regional wall motion abnormality ultrasound of carotids showed no significant stenosis. MRI brain pending I'll up in neurology recommendations Labs and medication were reviewed.. Continue same treatment. Continue with symptomatic treatment. Resume home medication. Monitor labs and vitals. DVT and GI prophylaxis. Further recommendations as per clinical course of the patient Dictation was produced using [employer] dictation software. please excuse any grammatical, word or spelling errors. Objective - Vital Signs Vital signs: Vital Signs Temp 98.3 F 02/09/23 07:56 Pulse 77 02/09/23 07:56 Resp 16 02/09/23 07:56 BP 111/70 02/09/23 07:56 Pulse Ox 97 02/09/23 07:56 FiO2 Intake & Output 02/08/23 02/09/23 02/09/23 18:59 06:59 18:59 Intake Total 358 Balance 358 Weight 90.718 kg Intake: Oral 358 Other: Voiding Method Toilet Toilet Toilet # Voids 1 3 - Labs CBC & Chem 7: 02/08/23 05:20 02/08/23 05:20 Labs: Abnormal Lab Results - Last 24 Hours (Table) 02/08/23 Range/Units 10:28 Hemoglobin A1c 6.7 H (<=6.0) %
--- NOTE | 2023-02-09 12:54 | P.PN ---
Subjective Progress Note Date: 02/09/23 The patient seen at bedside and she feels about the same today compared to yesterday. No additional neurological deficits. She denies of any headache currently. Objective - Vital Signs Vital signs: Vital Signs Temp 98.3 F 02/09/23 07:56 Pulse 77 02/09/23 07:56 Resp 16 02/09/23 07:56 BP 111/70 02/09/23 07:56 Pulse Ox 97 02/09/23 07:56 FiO2 Intake & Output 02/08/23 02/09/23 02/09/23 18:59 06:59 18:59 Intake Total 358 Balance 358 Weight 90.718 kg Intake: Oral 358 Other: Voiding Method Toilet Toilet Toilet # Voids 1 3 - Exam GENERAL: The patient is lying in bed and is not in acute distress. NEUROLOGICAL: Higher mental function: The patient is awake, alert, oriented to self, place and time. Patient is following commands. No aphasia and no neglect. Cranial nerves: The pupils are round, equal and reactive to light and accommodation. Visual potts are full to confrontation throughout. Extraocular movement is intact no nystagmus is noted. Facial sensation is normal to touch throughout. The facial strength is normal throughout. Hearing is normal bilaterally to hand rub. Tongue is midline and moved [id number] without any difficulty. No dysarthria is noted. Shoulder shrug is normal bilaterally. Motor: Gait is normal. The strength is 5 over 5 throughout. Normal tone and bulk. Cerebellum: Normal finger to nose heel to crabtree bilaterally. Sensation: Sensation is decreased out of entire left thumb. Otherwise normal to touch throughout. Reflexes (right/left): 1+ throughout. Plantars are downgoing bilaterally. Some of the workup during his hospital visit consisted of: With the panels triglyceride of 87, cholesterol is 190, LDLs 126 and HDL is a 45 Vitamin B12 is 310 Folate is 16.60 TSH is 2.660. Hemoglobin A1c 6.7 CT of the head is reported as age-related atrophy and chronic small vessel ischemic change without acute intracranial process seen at this time. I personally reviewed the CT head and there is no acute or subacute ischemia. Carotid duplex is reported as no significant hemodynamic stenosis. 2-D echo was reported as normal left ventricle size and wall thickness. E jection fraction of 55-60%. TSH is 2.660. - Labs CBC & Chem 7: 02/08/23 05:20 02/08/23 05:20 Labs: Abnormal Lab Results - Last 24 Hours (Table) 02/08/23 Range/Units 10:28 Hemoglobin A1c 6.7 H (<=6.0) % Assessment and Plan Assessment: This is a 52-year-old woman who was going under a lot of stress, in the process of getting a divorce who presented to our facility because of chest pain, left thumb numbness and left lower lip numbness. Her left lower lip numbness is re solved. Acute left thumb numbness and transient left lower lip numbness: Rule out stroke. Cannot exclude underlying stress as a culprit but first we need to rule out any acute ischemia not seen on CT head. Low normal vitamin B12 of 310 Diabetes mellitus and hemoglobin A1c 627 History of left "pinched nerve in neck" according to the patient Acute distress and is in the process of divorce Plan: I started the patient on aspirin 81 mg and Lipitor 20mg daily at bedtime for secondary stroke prophylaxis for now. I'll hold off on dual antiplatelets until MRI the brain is back. If MRI does reveal acute ischemia and then recommend dual antiplatelets of aspirin and Plavix. I ordered MRI of the brain and MRI of the cervical spine to rule out any acute ischemia or any significant cervical stenosis leading to cervical radiculopathy. Patient has low normal vitamin B12 therefore I gave the patient a vitamin B12 1000 g IM once then after that by mouth. Continue neuro checks On cardiac monitoring Consult PT and OT Recommend consideration of EMG with nerve conduction study of the left upper extremity to rule out any cervical radiculopathy as an outpatient. Notified the patient that she needs to follow-up without outpatient psychiatrist or therapist. We'll defer the rest of the medical message with the primary team DVT prophylaxis On subcu heparin 5000 unit every 12 hours. Upon discharge recommend the patient to follow-up with a neurologist in outpatient within 1-2 weeks. The plan discussed with the patient and her primary team. Time with Patient: Less than 30
[2023-02-09] MEDS ORDERED: CYANOCOBALAMIN 1,000 MCG/ML 1 ML VIAL IM ONE (13:15)
[2023-02-09 15:21] VITALS: BP 135/88; PULSE 80; TEMP 98.1
--- NOTE | 2023-02-09 15:27 | MR ---
EXAMINATION TYPE: MR brain/cspine wo DATE OF EXAM: 02/09/2023 3:02 PM CLINICAL INDICATION:Female, 52 years old with history of left face and thumb numbness.; Left face and thumb numbness. COMPARISON: MR cervical spine 05/25/2020 TECHNIQUE: Multiplanar, multisequence images of the brain and brainstem is performed. Multi planar, multi sequence imaging was performed utilizing: T1-weighted, T2-weighted, and turbo inv ersion recovery imaging of the cervical spine. MR IV Contrast: none FINDINGS: BRAIN: Diffusion weighted images demonstrate no evidence of a recent infarct or other diffusion abnormality. There is no extra-axial fluid collection or significant white matter signal abnormality. The ventr icular system and cisternal spaces are normal in size and appearance. The brain volume is age approp riate. Midline structures demonstrate normal morphology. The craniocervical junction appears within normal limits. The dural venous sinuses appear patent. Post contrast images demonstrate no abnormal enhancement The bone marrow signal is within normal limits. Paranasal sinuses and mastoid air cells: Mild scattered paranasal sinus disease. Visualized orbits: Orbital contents are intact. C-SPINE: Alignment: The cervical vertebral bodies have preserved heights. Alignment is within normal limits gi joan patient positioning. Bones: Multilevel disc degeneration changes throughout the spine with osteophyte formation disc space narrowing facet and uncovertebral arthropathy. Findings are worse C3-C4 through C5-C6. C2-C3: No significant disc pathology. The spinal canal is patent. No neural foraminal stenosis. C3-C4: A disc osteophyte complex is present which minimally narrows the ventral subarachnoid space. Bilateral facet and uncovertebral joint arthropathy are present with mild bilateral neural foraminal stenosis. C4-C5: A disc osteophyte complex is present which minimally narrows the ventral subarachnoid space. Bilateral facet and uncovertebral joint arthropathy are present with moderate to severe right and mi ld left neural foraminal stenosis. C5-C6: A disc osteophyte complex is present with moderate spinal canal stenosis. Bilateral facet and uncovertebral joint arthropathy are present with moderate to severe bilateral neural foraminal steno sis. C6-C7: No significant disc pathology. The spinal canal is patent. No neural foraminal stenosis. C7-T1: No significant disc pathology. The spinal canal is patent. No neural foraminal stenosis. Other: None. IMPRESSION: 1. No evidence of intracranial mass, acute/subacute infarct, or abnormal enhancement. 2. No evidence for active demyelination. 3. Overall findings indicate the cervical spine are not significantly changed from 2020. 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 Additional moderate to severe right C4-C5 st enosis also present. 4. Spinal cord cord signal is maintained
[2023-02-10] MEDS ORDERED: CYANOCOBALAMIN 500 MCG TAB PO SCH (09:00)
== END 2023-02-09 15:58 | disposition home or self-care (01) ==
LOC: EC 04:29 → 3SCARD 06:39
PROVIDERS: ADMIT Hospitalist; ATTEND Hospitalist
DX: R07.89 Other chest pain (principal); E87.6 Hypokalemia; R73.03 Prediabetes; H53.8 Other visual disturbances; R20.0 Anesthesia of skin; R20.2 Paresthesia of skin; Z63.5 Disruption of family by separation and divorce; M48.02 Spinal stenosis, cervical region; M50.30 Other cervical disc degeneration, unspecified cervical region; Z20.822 Contact with and (suspected) exposure to COVID-19; Z79.899 Other long term (current) drug therapy; Z88.8 Allergy status to other drugs, medicaments and biological substances; Z90.49 Acquired absence of other specified parts of digestive tract; Z87.42 Personal history of other diseases of the female genital tract; Z82.49 Family history of ischemic heart disease and other diseases of the circulatory system; Z83.49 Family history of other endocrine, nutritional and metabolic diseases; Z83.79 Family history of other diseases of the digestive system
CPT/HCPCS: 96372 ×2; 99285; 36415; 93005; 93306; 97161; 97165; 80061; 80053; 84443; 82607; 82746; 84484; 85025; 85610; 85730; 83036; 87636; 71046; 93880; 70450; 70551; 72141; G0378 ×2; J3420; J1644 ×2